=== PATIENT | female | born 1945 | race Caucasian/White ===

== ENCOUNTER 2016-12-13 10:39 | Inpatient (IN) | payer MEDICARE, OTHER ==
[~2016-12-13] VITALS: Ht 157.5 cm; Wt 57.7 kg
[~2016-12-13 10:39] MED LIST: CYCL1TAB29 PO; DULO1CAP PO; HYDR-3583 PO; LOSA50TA2 PO; RANI300T PO; [UNRECOGNIZED DRUG - CODE] PO
[2016-12-15] MEDS ORDERED: TOPA100T11 PO (09:19)
[2016-12-15] MEDS ORDERED: PROT40TA PO (09:19)
[2016-12-15] MEDS ORDERED: ALPR.25 PO (09:20)
[2016-12-15] MEDS ORDERED: COLA100C3 PO (09:20)
[2016-12-15] MEDS ORDERED: MILKSUS PO (09:20)
[2016-12-15] MEDS ORDERED: ZOFR4TAB PO (09:28)
[2016-12-28] MEDS ORDERED: ALVIMOPAN 12 MG CAPSULE ONE (10:47)
[2016-12-28] MEDS ORDERED: metroNIDAZOLE 500 MG INJ 100 ML IV ONE (10:47)
[2016-12-28] MEDS ORDERED: ceFAZolin 2 GM PREMIX 50 ML ONE (10:47)
[2016-12-28] MEDS ORDERED: SODIUM CHLORID 0.9% 500 ML IV SCH (11:00)
[2016-12-28] MEDS ORDERED: INSULIN HUMAN REGULAR 1,000 UNITS/10 ML VIAL SQ PRN (11:00)
[2016-12-28] MEDS ORDERED: ceFAZolin 2 GM PREMIX 50 ML IV SCH (11:00)
[2016-12-28] MEDS ORDERED: ALVIMOPAN 12 MG CAPSULE - On Call PO SCH (11:00)
[2016-12-28] MEDS ORDERED: ACETAMINOPHEN 1000 MG/100 ML VIAL IV SCH (11:00)
[2016-12-28] MEDS ORDERED: LACTATED RINGER'S 1000 ML IV SCH (11:00)
[2016-12-28] MEDS ORDERED: METOPROLOL TARTRATE 25 MG TAB PO PRN (11:00)
[2016-12-28 11:05] VITALS: BP 163/89; PULSE 91; RESP 18; TEMP 98.1; O2SAT 99
[2016-12-28] MEDS ORDERED: FAMOTIDINE 20 MG/2 ML VIAL ONE (11:45)
[2016-12-28] MEDS ORDERED: DEXAMETHASONE SOD PHOS 4 MG/ML VIAL ONE (11:45)
[2016-12-28] MEDS ORDERED: MIDAZOLAM HCL 2 MG/2 ML VIAL ONE (11:45)
[2016-12-28] MEDS ORDERED: ePHEDrine/NS 25 MG/5 ML SYR IV ONE (12:00)
[2016-12-28] MEDS ORDERED: ONDANSETRON HCL 4 MG/2 ML VIAL IV PUSH ONE (12:00)
[2016-12-28] MEDS ORDERED: NEOSTIGMINE 3 MG/3 ML SYR IV ONE (12:00)
[2016-12-28] MEDS ORDERED: LACTATED RINGER'S 1000 ML INJ 2,000 ML IV ONE (12:00)
[2016-12-28] MEDS ORDERED: PHENYLEPH/NS 1000 MCG/10 ML SYR IV ONE (12:00)
[2016-12-28] MEDS ORDERED: PROPOFOL 200 MG/20 ML AMP IV ONE (12:00)
[2016-12-28] MEDS ORDERED: GLUCAGON 1 MG/ML VIAL IV ONE (12:00)
[2016-12-28] MEDS ORDERED: BUPIVACAINE/EPINEPHRINE 0.25% PF 30 ML VIAL INFIL ONE (13:03)
[2016-12-28] MEDS ORDERED: Post-op Orders (for Pharmacy) MISC XX ONE (18:15)
[2016-12-28] MEDS ORDERED: ZOLPIDEM TARTRATE 5 MG TAB PO PRN (18:15)
[2016-12-28] MEDS ORDERED: NALOXONE HCL 0.4 MG/ML AMP IV PRN ×2 (18:15)
[2016-12-28] MEDS ORDERED: SODIUM CHLORIDE 0.9% FLUSH 5 ML FLUSH IVF PRN (18:15)
--- NOTE | 2016-12-28 18:21 | HHI.PR ---
Immediate Post Op Note Procedure Date: Dec 28, 2016 Pre Op Diagnosis: (1) Diverticulitis of large intestine with perforation and abscess without bleeding Post Op Diagnosis: (1) Diverticulitis of large intestine with perforation and abscess without bleeding Surgeon: Jass Wilks [place] Paver Operator(s): Jose Laughlin [facility] Procedure: Robot assisted sigmoid colectomy Findings: contained perforation with purulent fluid Complications: none Specimen(s) removed: sigmoid colon Estimated blood loss: 50cc Anesthesia: General Drains: None Patient to: PACU Patient Condition: Good Jass Wilks MD Dec 28, 2016 18:21
[2016-12-28] MEDS ORDERED: DO NOT ADM ANY ANTICOAGULANT DRUGS XX PRN (18:35)
[2016-12-28] MEDS ORDERED: fentaNYL CITRATE 250 MCG/5 ML AMP ONE ×2 (18:44)
[2016-12-28] MEDS ORDERED: MORPHINE SULFATE 4 MG/ML INJ ONE (18:44)
[2016-12-28] MEDS: SODIUM CHLOR 0.9% 1000 ML INJ 1,000 ML IV SCH (19:00)
[2016-12-28] MEDS ORDERED: *MEPERIDINE 25 MG INJ VIAL PERIprocedural Use ONLY ONE (19:13)
[2016-12-28] MEDS: metroNIDAZOLE 500 MG INJ 100 ML IV SCH (19:30)
[2016-12-28] MEDS: MORPHINE SULFATE 30 MG/30 ML PCA IV SCH (19:36)
[2016-12-28] MEDS: PANTOPRAZOLE SODIUM 40 MG VIAL IV SCH (19:46)
[2016-12-28] MEDS: KETOROLAC TROMETHAMINE 30 MG/ML (IVP) VIAL IVP SCH (19:46)
[2016-12-28 20:00] VITALS: BP 121/57; PULSE 83; RESP 18; TEMP 96.9; O2SAT 98
[2016-12-28] MEDS: SODIUM CHLORIDE 0.9% FLUSH 5 ML FLUSH IVF SCH (21:00)
[2016-12-28] MEDS: PCA - TOTAL MG MORPHINE DELIVERED PER SHIFT SCH (22:00)
[2016-12-29] VITALS (10 sets, daily range): BP systolic 101–119; BP diastolic 50–60; PULSE 72–86; RESP 16–20; TEMP 96.8–98.7; O2SAT 92–99
[2016-12-29] MEDS: diphenhydrAMINE HCL 50 MG/ML VIAL IV PRN ×3 (00:06→16:47)
[2016-12-29] MEDS: KETOROLAC TROMETHAMINE 30 MG/ML (IVP) VIAL IVP SCH ×4 (01:52→20:36)
[2016-12-29] MEDS: metroNIDAZOLE 500 MG INJ 100 ML IV SCH ×2 (01:52→13:25)
[2016-12-29] MEDS: SODIUM CHLOR 0.9% 1000 ML INJ 1,000 ML IV SCH ×2 (04:15→14:15)
[2016-12-29] MEDS: PCA - TOTAL MG MORPHINE DELIVERED PER SHIFT SCH ×3 (06:00→20:37)
[2016-12-29] MEDS: ALVIMOPAN 12 MG CAPSULE - Post-op dosing PO SCH ×2 (08:47→20:36)
[2016-12-29] MEDS: SODIUM CHLORIDE 0.9% FLUSH 5 ML FLUSH IVF SCH ×2 (08:48→20:36)
[2016-12-29] MEDS ORDERED: TOPAMAX 100 MG PO SCH (09:00)
--- NOTE | 2016-12-29 10:01 | HHI.PR ---
Subjective Subjective Notes Pain well controlled. Using TERRAZZO WORKER APPRENTICE. Shlomo clears. Objective Vitals/I&O Vital Signs Date Time Temp Pulse Resp B/P Pulse Ox O2 Delivery O2 Flow Rate FiO2 12/29/16 08:00 98.1 73 17 101/50 99 12/29/16 01:50 Nasal Cannula 12/28/16 19:50 2 Narrative Exam NAD, AAO Nonlabored breathing Mild crepitus upper chest Abd nondistended, inc c/d/i Reyna with cedric urine A/P Assessment and Plan 71 yo F POD 1 s/p robot assisted sigmoid colectomy. Pain controlled with TERRAZZO WORKER APPRENTICE/toradol. Shlomo liquids without nausea. Add percocet PRN. Fulls. OOB to chair and ambulate. DVT proph: SCDs. Collins. Efe,Jass JOHNSON Dec 29, 2016 10:01
[2016-12-29] MEDS: ENOXAPARIN SODIUM 40 MG/0.4 ML SYRINGE SQ SCH (16:37)
[2016-12-29] MEDS: MORPHINE SULFATE 30 MG/30 ML PCA IV SCH (17:49)
[2016-12-29] MEDS: PANTOPRAZOLE SODIUM 40 MG VIAL IV SCH (20:36)
[2016-12-29] MEDS: TOPAMAX 100 MG PO SCH (20:36)
[2016-12-30] VITALS (8 sets, daily range): BP systolic 124–144; BP diastolic 58–72; PULSE 61–73; RESP 17–19; TEMP 96.6–98.9; O2SAT 95–99
[2016-12-30] MEDS: SODIUM CHLOR 0.9% 1000 ML INJ 1,000 ML IV SCH ×3 (01:34→22:03)
[2016-12-30] MEDS: KETOROLAC TROMETHAMINE 30 MG/ML (IVP) VIAL IVP SCH ×4 (02:59→22:07)
[2016-12-30] MEDS: PCA - TOTAL MG MORPHINE DELIVERED PER SHIFT SCH ×3 (06:00→22:00)
[2016-12-30] MEDS: ALVIMOPAN 12 MG CAPSULE - Post-op dosing PO SCH ×2 (08:35→22:08)
[2016-12-30] MEDS: TOPAMAX 100 MG PO SCH ×2 (08:36→21:00)
[2016-12-30] MEDS: SODIUM CHLORIDE 0.9% FLUSH 5 ML FLUSH IVF SCH ×2 (08:36→22:06)
--- NOTE | 2016-12-30 11:53 | HHI.PR ---
Subjective Subjective Notes She feels well. Shlomo fulls. Has had some belching, no flatus. Ambulating in the halls. Objective Vitals/I&O Vital Signs Date Time Temp Pulse Resp B/P Pulse Ox O2 Delivery O2 Flow Rate FiO2 12/30/16 08:00 97.8 64 17 132/59 96 12/29/16 19:56 21 12/29/16 01:50 Nasal Cannula 12/28/16 19:50 2 Narrative Exam NAD, AAO Nonlabored breathing Abd nondistended, inc c/d/i Morel with cedric urine A/P Assessment and Plan 71 yo F POD 2 s/p robot assisted sigmoid colectomy. Doing well post op. Start percocet PO. D/c morel. Fulls. OOB to chair and ambulate. DVT proph: SCDs. Collins. Jass Wilks MD Dec 30, 2016 11:53
[2016-12-30] MEDS: ENOXAPARIN SODIUM 40 MG/0.4 ML SYRINGE SQ SCH (16:34)
[2016-12-30] MEDS: PANTOPRAZOLE SODIUM 40 MG VIAL IV SCH (22:07)
[2016-12-30] MEDS: DULoxetine HCl DR 20 MG CAP PO SCH (22:18)
[2016-12-31] VITALS: BP 144/67; PULSE 60; RESP 19; TEMP 98; O2SAT 97
[2016-12-31] MEDS: KETOROLAC TROMETHAMINE 30 MG/ML (IVP) VIAL IVP SCH ×4 (02:08→21:24)
[2016-12-31 04:00] VITALS: BP 139/65; PULSE 65; RESP 20; TEMP 97.4; O2SAT 95
[2016-12-31] MEDS: PCA - TOTAL MG MORPHINE DELIVERED PER SHIFT SCH (05:27)
[2016-12-31 08:00] VITALS: BP_SYST 170; BP_SYST 172; BP_DIAS 80; BP_DIAS 81; PULSE 52; RESP 18; TEMP 97.5; O2SAT 97
[2016-12-31] MEDS: ALVIMOPAN 12 MG CAPSULE - Post-op dosing PO SCH ×2 (08:51→21:24)
[2016-12-31] MEDS: HYDROCHLOROTHIAZIDE 12.5 MG CAP PO SCH (08:51)
[2016-12-31] MEDS: LOSARTAN 50 MG TAB PO SCH (08:51)
[2016-12-31] MEDS: SODIUM CHLORIDE 0.9% FLUSH 5 ML FLUSH IVF SCH ×2 (08:52→21:00)
[2016-12-31] MEDS ORDERED: NON-FORMULARY DRUG (Losartan-Hydrochlorothiazide 1 TAB) PO SCH (09:00)
[2016-12-31] MEDS: oxyCODONE/ACETAMINOPHEN 5 MG/325 MG TAB PO PRN ×3 (09:02→17:55)
[2016-12-31] MEDS: TOPAMAX 100 MG PO SCH ×2 (09:02→21:25)
[2016-12-31] MEDS: ONDANSETRON HCL 4 MG/2 ML VIAL IV PRN (09:03)
[2016-12-31 12:00] VITALS: BP 139/65; PULSE 58; RESP 18; TEMP 96.9; O2SAT 96
[2016-12-31] MEDS ORDERED: OXYC1TAB63 PO (12:49)
--- NOTE | 2016-12-31 12:52 | HHI.PR ---
Subjective Subjective Notes Tolerating fulls without problem. Ambulating. Pain well controlled, using SEAT COVER MAKER minimally. Objective Vitals/I&O Vital Signs Date Time Temp Pulse Resp B/P Pulse Ox O2 Delivery O2 Flow Rate FiO2 12/31/16 12:00 96.9 58 18 139/65 96 12/30/16 09:45 21 12/29/16 01:50 Nasal Cannula 12/28/16 19:50 2 Narrative Exam NAD, AAO Nonlabored breathing Abd min distention, inc c/d/i A/P Assessment and Plan 71 yo F POD 3 s/p robot assisted sigmoid colectomy. Doing well post op. D/c SEAT COVER MAKER and IVF. Cont Percocet PO. Reg diet. OOB to chair and ambulate. DVT proph: SCDs. Lovenox. Possible d/c tomorrow if passing flatus/+BM. Jass Wilks MD Dec 31, 2016 12:52
[2016-12-31 16:00] VITALS: BP 144/64; PULSE 58; RESP 17; TEMP 98.3; O2SAT 96
[2016-12-31] MEDS: ENOXAPARIN SODIUM 40 MG/0.4 ML SYRINGE SQ SCH (17:55)
--- NOTE | 2016-12-31 19:15 | MP ---
cc: LAVERN BETANCOURT MD DATE OF SURGERY 12/29/16 PREOPERATIVE DIAGNOSIS Diverticulitis with abscess. POSTOPERATIVE DIAGNOSIS Diverticulitis with abscess. PROCEDURE Robot assisted sigmoid colectomy. CO-SURGEONS MD Eric Melvin MD SASH MAKER Qian Thao CFA, CFA ANESTHESIA General endotracheal anesthesia ESTIMATED BLOOD LOSS 50 mL COMPLICATIONS None apparent. INDICATIONS This is a 71-year-old female who had a history of diverticulitis with perforation. She had undergone laparoscopic washout and lavage with drain placement and recovered well. She was planned for elective resection of the sigmoid colon. INTRAOPERATIVE FINDINGS The patient has had severe diverticulosis of the sigmoid colon. There was adherence of a portion of the sigmoid colon to the dome of the bladder and in this area there was a contained abscess with purulent fluid that drained. This was not spilled through the peritoneal cavity and was easily suctioned free from the abdomen. PROCEDURE IN DETAIL The patient was taken to the operating room, placed in a supine position. General endotracheal anesthesia was induced. The abdomen was prepped and draped in usual sterile fashion. The patient was placed in stirrups for access to the perineum. Initially, a 5 mm incision was made in the left upper abdomen. The abdomen was entered using the OptiView trocar and direct laparoscopic visualization. The abdomen was then insufflated to 15 mmHg with CO2 gas. Next, under direct laparoscopic visualization a 12 mm port was placed a couple of centimeters to the right of the umbilicus. About 8 cm lateral and then inferiorly another 12 mm port was placed. An ambulance assistant port 5 mm was placed in the right upper quadrant. In the left lateral abdomen, an 8 mm robotic port was placed. Finally, the initial 5 mm left upper quadrant port was exchanged for an 8 mm robotic port. The patient was placed in steep Trendelenburg position and turned slightly to the right. Next, the robot was docked with the camera at the umbilical port arm one in the right lower abdomen, arm two in the left upper abdomen and arm three in the left lateral abdomen. Attention was turned to taking down a few adhesions. There was adherence of the sigmoid colon to apparently the dome of the bladder. This was taken down carefully with electrocautery and a purulent pocket was entered. This was carefully suctioned with no spillage into the abdominal cavity. A few other adhesions were carefully taken down. The patient was thin and anatomy was quite clear. Actually, the left ureter was visible prior to any dissection. Then the peritoneum was scored and the ureter visualized even more closely. The sigmoidal vessels were carefully delineated using electrocautery and were then transected with the vessel sealer. Attention was then turned to lateral dissection. The white line of Toldt was dissected free and the peritoneum along the white line of Toldt in the sigmoid and descending colon taken down with the vessel sealer. The mesentery was divided along the spleen using the vessel sealer. Attention was then turned to the pelvis. Careful dissection at the rectosigmoid and upper rectum was performed. The peritoneum was scored. Attention was paid to the left ureter and the right ureter was also identified. These were avoided. The upper rectum was mobilized circumferentially. The mesorectum in the upper portion was taken down using the vessel sealer. At this point, the upper rectum was divided using the intuitive green load stapler in two fires. There was no bleeding from the staple line. Next, the descending colon superior to any obvious diverticular disease was divided using the green load stapler as well. The specimen was moved to the right upper abdomen and the descending colon brought down into the pelvis. Unfortunately, there was still not enough length. Therefore, the splenic flexure was then taken down carefully. This was started at the gastrocolic ligament and the avascular plane. The lateral attachments at the superior descending colon and the splenic flexure were taken down with the vessel sealer. Unfortunately, there was still not enough length and further blood supply in the mesentery of the descending colon was then divided to allow sufficient length. There remained a healthy-appearing arcade along the length of the descending colon and the descending colon appeared well perfused. This did allow for sufficient length. Next, the abdomen was allowed to desufflate and the robot was undocked. The patient had a previous Pfannenstiel incision. An approximately 5 cm incision was made through this scar and the abdomen was entered. The specimen was removed through this incision and sent to pathology. The distal colon was brought out through the incision. There had been one area of serosal injury a few centimeters from the staple line and this was repaired with multiple imbricating 3-0 Vicryl sutures. The pursestring device was fired on the end of the descending colon and the 29 size anvil was placed. The pursestring device was sutured down. The anvil was then dropped back into the abdomen. Next, the rigid sigmoidoscope was placed through the anus. It easily went to the stapled end of the rectum. The 29 EEA was then placed through the anus and just anterior to the staple line, the pin was fired through the rectum. The anvil was attached. There appeared to be a good seal. The colon was not twisted and there was no tension. The EEA was then fired. There were two full donuts. A leak test was performed with normal saline and insufflation of the rectum with the rigid sigmoidoscope and there was no leak. There was good hemostasis in the pelvis. The sigmoidoscope was removed. The Pfannenstiel incision was closed with a running #1 PDS suture. The abdomen was re-insufflated laparoscopically. Again, the colon had no twisting and no tension. The abdomen was allowed to desufflate. The two 12-mm port sites were closed with 0 Vicryl suture. Skin was closed with 4-0 Monocryl as well as Dermabond. The patient tolerated the procedure well, was extubated and taken to PACU in stable condition. Prior to removing the specimen, a wound protector device was placed. MD ANIYAH Vang/ /10:05 AM /6:52 PM
[2016-12-31 20:00] VITALS: BP 146/64; PULSE 59; RESP 20; TEMP 97.3; O2SAT 96
[2016-12-31] MEDS: DOCUSATE SODIUM 100 MG CAP PO SCH (21:24)
[2016-12-31] MEDS: DULoxetine HCl DR 20 MG CAP PO SCH (21:26)
[2017-01-01] VITALS: BP 170/72; PULSE 58; RESP 20; TEMP 97.6; O2SAT 98
[2017-01-01] MEDS: oxyCODONE/ACETAMINOPHEN 5 MG/325 MG TAB PO PRN ×4 (00:07→18:24)
[2017-01-01] MEDS: KETOROLAC TROMETHAMINE 30 MG/ML (IVP) VIAL IVP SCH ×4 (02:33→20:37)
[2017-01-01 08:00] VITALS: BP 164/68; PULSE 52; RESP 14; TEMP 97.6; O2SAT 97
[2017-01-01] MEDS: TOPAMAX 100 MG PO SCH ×2 (08:06→20:38)
[2017-01-01] MEDS: HYDROCHLOROTHIAZIDE 12.5 MG CAP PO SCH (08:07)
[2017-01-01] MEDS: DOCUSATE SODIUM 100 MG CAP PO SCH ×2 (08:07→20:38)
[2017-01-01] MEDS: SODIUM CHLORIDE 0.9% FLUSH 5 ML FLUSH IVF SCH ×2 (08:07→20:38)
[2017-01-01] MEDS: LOSARTAN 50 MG TAB PO SCH (08:07)
[2017-01-01] MEDS: PANTOPRAZOLE SOD 40 MG DELAYED RELEASE TAB PO SCH (08:08)
[2017-01-01] MEDS: ALVIMOPAN 12 MG CAPSULE - Post-op dosing PO SCH ×2 (08:08→20:37)
[2017-01-01 12:00] VITALS: BP 152/84; PULSE 65; RESP 12; TEMP 98.1; O2SAT 98
--- NOTE | 2017-01-01 13:02 | HHI.PR ---
Subjective Subjective Notes She feels very tired and weak today. She is tolerating a regular diet in very small amounts, but no nausea or vomiting. Her pain is well controlled. She had a liquid bowel movement earlier today. Due to her extreme fatigue she is asking to stay another day. Objective Vitals/I&O Vital Signs Date Time Temp Pulse Resp B/P Pulse Ox O2 Delivery O2 Flow Rate FiO2 01/01/17 08:00 97.6 52 14 164/68 97 12/30/16 09:45 21 12/29/16 01:50 Nasal Cannula 12/28/16 19:50 2 Cardiovascular: Regular Lungs: Clear Abdomen: Non-distended, Non-tender, BS normal Extremities: No edema A/P Assessment and Plan Postoperative day #3 status post robotic-assisted sigmoid colectomy. Doing extremely well. She should be able to go home tomorrow. Fracisco Ludwig MD Jan 01, 2017 13:02
[2017-01-01 16:00] VITALS: BP 141/78; PULSE 70; RESP 14; TEMP 98.6; O2SAT 97
[2017-01-01] MEDS: ENOXAPARIN SODIUM 40 MG/0.4 ML SYRINGE SQ SCH (17:45)
[2017-01-01 20:00] VITALS: BP 161/72; PULSE 72; RESP 20; TEMP 97.3; O2SAT 96
[2017-01-01] MEDS: DULoxetine HCl DR 20 MG CAP PO SCH (20:37)
[2017-01-02] VITALS: BP 171/81; PULSE 63; RESP 18; TEMP 97.6; O2SAT 96
[2017-01-02] MEDS: oxyCODONE/ACETAMINOPHEN 5 MG/325 MG TAB PO PRN (00:43)
[2017-01-02] MEDS: KETOROLAC TROMETHAMINE 30 MG/ML (IVP) VIAL IVP SCH ×2 (01:24→08:00)
[2017-01-02] MEDS ORDERED: HYDROCHLOROTHIAZIDE 12.5 MG CAP PO SCH (01:30)
[2017-01-02] MEDS ORDERED: LOSARTAN 50 MG TAB PO SCH (01:30)
[2017-01-02 04:05] VITALS: BP 174/82; PULSE 65; RESP 18; TEMP 97.7; O2SAT 96
[2017-01-02] MEDS: ONDANSETRON HCL 4 MG/2 ML VIAL IV PRN ×2 (06:12→12:37)
[2017-01-02 08:00] VITALS: BP 180/82; PULSE 56; RESP 18; TEMP 97.7; O2SAT 97
[2017-01-02] MEDS: HYDROCHLOROTHIAZIDE 12.5 MG CAP PO SCH (08:56)
[2017-01-02] MEDS: SODIUM CHLORIDE 0.9% FLUSH 5 ML FLUSH IVF SCH (08:56)
[2017-01-02] MEDS: TOPAMAX 100 MG PO SCH (08:56)
[2017-01-02] MEDS: ALVIMOPAN 12 MG CAPSULE - Post-op dosing PO SCH (08:56)
[2017-01-02] MEDS: LOSARTAN 50 MG TAB PO SCH (08:56)
[2017-01-02] MEDS: PANTOPRAZOLE SOD 40 MG DELAYED RELEASE TAB PO SCH (08:56)
[2017-01-02] MEDS: DOCUSATE SODIUM 100 MG CAP PO SCH (08:56)
[2017-01-02] MEDS ORDERED: ZOFR4TAB3 SL (08:58)
[2017-01-02 12:00] VITALS: BP 190/83; PULSE 66; RESP 19; TEMP 96.5; O2SAT 97
--- NOTE | 2017-03-07 17:21 | MD ---
cc: LAVERN BETANCOURT MD ADMISSION DATE: 12/28/2016 DISCHARGE DATE: 01/02/2017 PROCEDURES: The patient underwent laparoscopic per the patient underwent robot assisted sigmoid colectomy on 12/29/2016. BRIEF HISTORY This is a 71-year-old female who had a history of a perforated sigmoid diverticulitis and had undergone laparoscopic lavage and drainage. After recuperating and improving. She was scheduled for elective robotic assisted sigmoid resection. HOSPITAL COURSE The patient did well during the operation. Postoperatively her diet was advanced until she was tolerating regular diet with flatus and bowel movement. Her pain was initially controlled with DIVISION TOLL WIRE CHIEF and then later with only narcotic oral medication. She was ambulating safely. CONDITION ON DISCHARGE Stable. Discharged to home. DISCHARGE MEDICATIONS 1. Zofran ODT 2. She already had a prescription for Lortab at home. 3. Follow with me in 10 days, diet as tolerated. ACTIVITY No heavy lifting. No driving on narcotics, okay to shower. MD ANIYAH Vang/wilder /4:06 PM /5:18 PM
== END 2017-01-02 13:02 | disposition home or self-care (01) | DRG 330 ==
LOC: HSDI 12-28 10:10 → N07A 12-28 20:13
PROVIDERS: ADMIT Surgery; ATTEND Surgery
PROC: 8E0W4CZ Robotic Assisted Procedure of Trunk Region, Percutaneous Endoscopic Approach (ICD-10-PCS; 2016-12-28)
PROC: 0DJD8ZZ Inspection of Lower Intestinal Tract, Via Natural or Artificial Opening Endoscopic (ICD-10-PCS; 2016-12-28)
PROC: 0DTN4ZZ Resection of Sigmoid Colon, Percutaneous Endoscopic Approach (ICD-10-PCS; principal; 2016-12-28 12:03)
DX: K57.20 Diverticulitis of large intestine with perforation and abscess without bleeding (principal); I10 Essential (primary) hypertension; K21.9 Gastro-esophageal reflux disease without esophagitis; F41.9 Anxiety disorder, unspecified; Z88.5 Allergy status to narcotic agent
CPT/HCPCS: 88307; 94150; C9113; J0131; J0690; J1100; J1200; J1610; J1650; J1885; J2175; J2250; J2270; J2370; J2405; J2710; J3010; J7030; J7120

== ENCOUNTER → 2016-12-15 | Outpatient (CLI) | payer MEDICARE, OTHER ==
[~2016-12-15] MED LIST changes: +ALPR.25 PO; +COLA100C3 PO; +LEVA750T PO; +METR-1 PO; +MILKSUS PO; +OXYC1TAB63 PO; +PROT40TA PO; +TOPA100T11 PO; +ZOFR4TAB PO; +ZOFR4TAB3 SL
[2016-12-15 09:29] LABS: AUTOMATED NEUTROPHIL # 3.2 TH/MM3 (1.8-7.7); BASOPHIL # 0.1 TH/MM3 (0-0.2); BASOPHIL % 1.1 % (0.0-2.0); EOSINOPHIL % 0.9 % (0.0-4.0); HEMATOCRIT 39.9 % (35.0-46.0); HEMO FLAGS DIFF FINAL; LYMPH % 23.7 % (9.0-44.0); LYMPHOCYTE # 1.1 TH/MM3 (1.0-4.8); MEAN CELL VOLUME 95.3 FL (80.0-100.0); MEAN CORPUSCULAR HEMOGLOBIN 31.9 PG (27.0-34.0); MEAN CORPUSCULAR HGB CONC 33.5 % (32.0-36.0); MONO % 9.5 % (0.0-8.0); NEUT % 64.8 % (16.0-70.0); PLATELET COUNT 216 TH/MM3 (150-450); RED BLOOD COUNT 4.18 MIL/MM3 (4.00-5.30); WHITE BLOOD COUNT 4.9 TH/MM3 (4.0-11.0)
== END ==
LOC: CPRE 08:52
PROVIDERS: ATTEND Surgery
DX: Z01.812 Encounter for preprocedural laboratory examination (principal)
CPT/HCPCS: 36415; 85025

== ENCOUNTER 2017-07-11 05:37 | Observation (INO) | payer MEDICARE, OTHER ==
[~2017-07-11] VITALS: Ht 157.5 cm; Wt 61.8 kg
[~2017-07-11 05:37] MED LIST changes: -COLA100C3 PO; +CYMB30CA PO; +DOCU100C PO; -DULO1CAP PO; -LEVA750T PO; +LOSA100T3 PO; -LOSA50TA2 PO; -METR-1 PO; -MILKSUS PO; -OXYC1TAB63 PO
[2017-07-11] MEDS ORDERED: INSULIN HUMAN REGULAR 1,000 UNITS/10 ML VIAL SQ PRN (06:00)
[2017-07-11] MEDS ORDERED: ACETAMINOPHEN 1000 MG/100 ML VIAL IV SCH (06:00)
[2017-07-11] MEDS ORDERED: CHLORHEXIDINE GLUCONATE 2 % 1 PACK (2 CLOTHS) TOPICAL PRN (06:00)
[2017-07-11] MEDS ORDERED: SODIUM CHLORID 0.9% 500 ML IV PRN (06:00)
[2017-07-11] MEDS ORDERED: METOPROLOL TARTRATE 25 MG TAB PO PRN (06:00)
[2017-07-11] MEDS ORDERED: ceFAZolin 2 GM PREMIX 50 ML IV SCH (06:00)
[2017-07-11] MEDS ORDERED: LACTATED RINGER'S 1000 ML IV PRN (06:00)
[2017-07-11] MEDS ORDERED: POVIDONE IODINE 5% (ANTISEPSIS KIT) 4 APPLICATIONS EACH NARE PRN (06:00)
[2017-07-11 06:37] VITALS: BP 146/77; PULSE 66; RESP 18; TEMP 97.8; O2SAT 98
[2017-07-11] MEDS ORDERED: fentaNYL CITRATE 250 MCG/5 ML AMP ONE (07:55)
[2017-07-11] MEDS ORDERED: DEXAMETHASONE SOD PHOS 4 MG/ML VIAL ONE (07:55)
[2017-07-11] MEDS ORDERED: MIDAZOLAM HCL 2 MG/2 ML VIAL ONE ×2 (07:55→08:10)
[2017-07-11] MEDS ORDERED: ONDANSETRON HCL 4 MG/2 ML VIAL ONE (07:56)
[2017-07-11] MEDS ORDERED: FAMOTIDINE 20 MG/2 ML VIAL ONE (07:56)
[2017-07-11] MEDS ORDERED: BUPIVACAINE/EPINEPHRINE 0.25% 50 ML VIAL ONE (08:21)
[2017-07-11] MEDS ORDERED: ROPIVACAINE 0.5% PF INJ 30 ML VIAL NERV BLOCK ONE (09:41)
[2017-07-11] MEDS ORDERED: Post-op Orders (for Pharmacy) MISC XX ONE (10:45)
[2017-07-11] MEDS ORDERED: SODIUM CHLORIDE 0.9% FLUSH 10 ML FLUSH IV FLUSH PRN (10:45)
[2017-07-11] MEDS ORDERED: oxyCODONE/ACETAMINOPHEN 5 MG/325 MG TAB PO PRN (10:45)
[2017-07-11] MEDS ORDERED: NALOXONE HCL 0.4 MG/ML AMP IV PRN (10:45)
[2017-07-11] MEDS ORDERED: diphenhydrAMINE HCL 25 MG CAP PO PRN (10:45)
--- NOTE | 2017-07-11 10:47 | PD.OP ---
cc: Jass Wilks MD Operative Report Date of Surgery: Jul 11, 2017 Preoperative Diagnosis: (1) Incisional hernia Postoperative Diagnosis: (1) Incisional hernia Procedure: Laparoscopic repair of incisional suprapubic hernia with mesh Anesthesia: YOVANY Surgeon: Jass Wilks Padded Box Sewer(s): Zoila Morales Operation and Findings: EBL: 5 cc Indications: The patient underwent robot assisted sigmoid colectomy 6 months ago. Unfortunately, she developed a suprapubic incisional hernia at the site of the minilaparotomy. She had significant discomfort and after discussion with the patient we plan laparoscopic repair. Operative findings: The patient had a approximate 4 x 5 cm suprapubic incisional hernia. Procedure in detail: The patient was taken to the operating room and placed in supine position. General endotracheal anesthesia was induced and the abdomen was prepped and draped in usual sterile fashion. Ioban was placed. Surgical timeout was performed to verify correct patient procedure and site. Local anesthetic was injected in skin and subcutaneous tissue in the left upper abdomen and a 5 mm incision made. 5 mm trocar was used to enter the abdomen probably with a lap scope in place. Abdomen was insufflated to 15 mmHg with CO2 gas which the patient tolerated well. Another 5 mm port was placed in the left lateral abdomen and a 12 mm GelPort and in the right upper abdomen and a 5 mm port in the right far upper abdomen. A suprapubic hernia defect was identified. Using the Harmonic scalpel, the hernia sac was reduced. The peritoneum was taken down for a few centimeters lateral to the defect on either side. The pubis was encountered and the dome of the bladder was taken down to develop the extraperitoneal space. The pubis and both Wilfredo's ligaments were identified and the hernia was starting at midline and going about 4 cm to left of midline. There were about 3 cm of rectus fascia superior to the pubis before the hernia defect. An 11 x [address] mesh using the echo deployment system was placed in the abdominal cavity. Small small stab incision placed superior to the hernia sac and a catheter inflated to inflate the structural portion of the mesh. The mesh was secured using the Capsure tacker at the medial portion of both Wilfredo's ligaments and then circumferentially taking care to avoid any vessels. I was not as lateral as the epigastrics or the iliacs. A second layer of tacks was placed more centrally. There was wide coverage of the defect. The peritoneum which had been taken down was tacked back up to cover the majority of the mesh. The patient tolerated the procedure well was extubated and taken to PACU in stable condition. The urine did appear pink and the Reyna catheter and this will be monitored and the catheter left in place. Jass Wilks MD Jul 11, 2017 10:47
[2017-07-11] MEDS: LACTATED RINGER'S 1000 ML INJ 1,000 ML IV SCH ×2 (11:11→21:41)
[2017-07-11] MEDS ORDERED: *morphine SULFATE 8 MG/ML PERIprocedure ONLY ONE ×3 (11:13→12:27)
[2017-07-11] MEDS: KETOROLAC TROMETHAMINE 30 MG/ML (IVP) VIAL IVP SCH ×2 (11:42→16:31)
[2017-07-11] MEDS ORDERED: NEOSTIGMINE 3 MG/3 ML SYR IV ONE (12:00)
[2017-07-11] MEDS ORDERED: PROPOFOL 200 MG/20 ML AMP IV ONE (12:00)
[2017-07-11] MEDS ORDERED: ePHEDrine/NS 25 MG/5 ML SYR IV ONE (12:00)
[2017-07-11] MEDS ORDERED: ONDANSETRON HCL 4 MG/2 ML VIAL IV PUSH ONE (12:00)
[2017-07-11] MEDS: PANTOPRAZOLE SOD 40 MG DELAYED RELEASE TAB PO SCH (13:00)
[2017-07-11] MEDS ORDERED: KETOROLAC TROMETHAMINE 30 MG/ML (IVP) VIAL IVP SCH (13:00)
[2017-07-11] MEDS ORDERED: DO NOT ADM ANY ANTICOAGULANT DRUGS PRN (15:15)
[2017-07-11 16:00] VITALS: BP 127/58; PULSE 63; RESP 17; TEMP 95.5; O2SAT 98
[2017-07-11] MEDS: MORPHINE SULFATE 4 MG/ML INJ IV PRN (16:22)
[2017-07-11 18:13] VITALS: O2SAT 98
[2017-07-11 20:00] VITALS: BP 103/59; PULSE 64; RESP 20; TEMP 95.6; O2SAT 96
[2017-07-11] MEDS: SODIUM CHLORIDE 0.9% FLUSH 10 ML FLUSH IV FLUSH SCH (21:00)
[2017-07-11] MEDS: oxyCODONE/ACETAMINOPHEN 10 MG/325 MG TAB PO PRN (21:40)
[2017-07-11] MEDS: ONDANSETRON HCL 4 MG/2 ML VIAL IV PRN (21:40)
[2017-07-11] MEDS: DOCUSATE SODIUM 100 MG CAP PO SCH (21:41)
[2017-07-12] VITALS (7 sets, daily range): BP systolic 106–151; BP diastolic 56–71; PULSE 56–75; RESP 17–19; TEMP 96–99.3; O2SAT 94–98
[2017-07-12] MEDS: MORPHINE SULFATE 4 MG/ML INJ IV PRN ×3 (04:30→21:28)
[2017-07-12] MEDS: KETOROLAC TROMETHAMINE 30 MG/ML (IVP) VIAL IVP SCH ×4 (06:33→17:34)
[2017-07-12] MEDS: DOCUSATE SODIUM 100 MG CAP PO SCH ×2 (07:58→21:28)
[2017-07-12] MEDS: oxyCODONE/ACETAMINOPHEN 10 MG/325 MG TAB PO PRN ×2 (07:58→16:19)
[2017-07-12] MEDS: LACTATED RINGER'S 1000 ML INJ 1,000 ML IV SCH ×2 (07:59→17:34)
[2017-07-12] MEDS: SODIUM CHLORIDE 0.9% FLUSH 10 ML FLUSH IV FLUSH SCH ×2 (08:00→21:00)
[2017-07-12 08:11] LABS: AUTOMATED NEUTROPHIL # 4.9 TH/MM3 (1.8-7.7); BASOPHIL % 0.5 % (0.0-2.0); EOSINOPHIL % 0.5 % (0.0-4.0); HEMO FLAGS DIFF FINAL; LYMPH % 21.1 % (9.0-44.0); LYMPHOCYTE # 1.5 TH/MM3 (1.0-4.8); MEAN CELL VOLUME 96.1 FL (80.0-100.0); MEAN CORPUSCULAR HEMOGLOBIN 32.8 PG (27.0-34.0); MEAN CORPUSCULAR HGB CONC 34.1 % (32.0-36.0); MONO % 9.3 % (0.0-8.0); NEUT % 68.6 % (16.0-70.0); PLATELET COUNT 175 TH/MM3 (150-450); RED BLOOD COUNT 3.54 MIL/MM3 (4.00-5.30); RED CELL DISTRIBUTION WIDTH 13.6 % (11.6-17.2); WHITE BLOOD COUNT 7.2 TH/MM3 (4.0-11.0)
[2017-07-12] MEDS: ENOXAPARIN SODIUM 40 MG/0.4 ML SYRINGE SQ SCH (08:32)
[2017-07-12 08:36] LABS: BICARBONATE 28.1 MEQ/L (21.0-32.0)
--- NOTE | 2017-07-12 08:38 | HHI.PR ---
Subjective Subjective Notes C/o pain when she sits up. C/o edema in the labia. Objective Vitals/I&O Vital Signs Date Time Temp Pulse Resp B/P Pulse Ox O2 Delivery O2 Flow Rate FiO2 07/12/17 04:00 96.6 56 18 131/61 94 07/11/17 18:13 21 Labs Laboratory Tests Test 07/12/17 05:40 White Blood Count 7.2 Red Blood Count 3.54 Hemoglobin 11.6 Hematocrit 34.0 Mean Corpuscular Volume 96.1 Mean Corpuscular Hemoglobin 32.8 Mean Corpuscular Hemoglobin 34.1 Concent Red Cell Distribution Width 13.6 Platelet Count 175 Mean Platelet Volume 9.8 Neutrophils (%) (Auto) 68.6 Lymphocytes (%) (Auto) 21.1 Monocytes (%) (Auto) 9.3 Eosinophils (%) (Auto) 0.5 Basophils (%) (Auto) 0.5 Neutrophils # (Auto) 4.9 Lymphocytes # (Auto) 1.5 Monocytes # (Auto) 0.7 Eosinophils # (Auto) 0.0 Basophils # (Auto) 0.0 CBC Comment DIFF FINAL Differential Comment Narrative Exam NAD Abd: soft, mild edema at pubis and labia, inc c/d/i A/P Assessment and Plan 72 yo F POD 1 s/p lap suprapubic hernia repair with mesh. Stable. Regular diet Restart home meds Encourage ambulation Continue morel due to location of hernia repair and bladder being involved in operation. WIll dc in am. Jass Wilks MD Jul 12, 2017 08:38
[2017-07-12] MEDS ORDERED: FROVATRIPTAN PO PRN (08:45)
[2017-07-12 08:50] LABS: POTASSIUM 3.9 MEQ/L (3.5-5.1)
[2017-07-12] MEDS ORDERED: PANTOPRAZOLE SOD 40 MG DELAYED RELEASE TAB PO SCH (09:00)
[2017-07-12] MEDS ORDERED: NON-FORMULARY DRUG (Losartan-Hydrochlorothiazide 1 TAB) PO SCH (09:00)
[2017-07-12] MEDS: PANTOPRAZOLE SOD 40 MG DELAYED RELEASE TAB PO SCH (11:57)
[2017-07-12] MEDS ORDERED: PILL SPLITTER OTHER PRN (15:30)
[2017-07-12] MEDS ORDERED: CYCLOBENZAPRINE HCL 10 MG TAB PO PRN ×2 (18:00)
[2017-07-12] MEDS ORDERED: NON-FORMULARY DRUG (Ranitidine 300 MG) PO SCH (21:00)
[2017-07-12] MEDS: FAMOTIDINE 20 MG TAB PO SCH (21:28)
[2017-07-12] MEDS: DULoxetine HCl DR 30 MG CAP PO SCH (21:28)
[2017-07-13] VITALS (8 sets, daily range): BP systolic 135–169; BP diastolic 67–74; PULSE 70–78; RESP 16–20; TEMP 96.2–98.8; O2SAT 93–97
[2017-07-13] MEDS: oxyCODONE/ACETAMINOPHEN 10 MG/325 MG TAB PO PRN ×3 (01:29→16:52)
[2017-07-13] MEDS: LACTATED RINGER'S 1000 ML INJ 1,000 ML IV SCH (05:00)
[2017-07-13] MEDS: KETOROLAC TROMETHAMINE 30 MG/ML (IVP) VIAL IVP SCH ×4 (06:24→18:12)
[2017-07-13] MEDS: SODIUM CHLORIDE 0.9% FLUSH 10 ML FLUSH IV FLUSH SCH ×2 (09:00→19:57)
[2017-07-13] MEDS: DOCUSATE SODIUM 100 MG CAP PO SCH ×2 (09:00→19:57)
[2017-07-13] MEDS: LOSARTAN 50 MG TAB PO SCH (09:36)
[2017-07-13] MEDS: HYDROCHLOROTHIAZIDE 12.5 MG CAP PO SCH (09:37)
[2017-07-13] MEDS: FAMOTIDINE 20 MG TAB PO SCH ×2 (09:37→19:57)
[2017-07-13] MEDS: ENOXAPARIN SODIUM 40 MG/0.4 ML SYRINGE SQ SCH (09:38)
--- NOTE | 2017-07-13 10:54 | HHI.PR ---
Subjective Subjective Notes Her pain and the swelling in her labia are both improving. She is going to get out of bed and ambulate. Tolerating diet but no BM and requests a laxative. Objective Vitals/I&O Vital Signs Date Time Temp Pulse Resp B/P Pulse Ox O2 Delivery O2 Flow Rate FiO2 07/13/17 08:00 98.8 73 16 150/67 96 07/12/17 20:03 Nasal Cannula 2.00 07/11/17 18:13 21 Narrative Exam NAD Abd: soft, edema at pubis and labia, inc c/d/i Morel clear urine A/P Assessment and Plan 72 yo F POD 2 s/p lap suprapubic hernia repair with mesh. Stable. Regular diet Cont home meds Encourage ambulation D/c morel. Stop IVF. Give laxative. Jass Wilks MD Jul 13, 2017 10:54
[2017-07-13] MEDS ORDERED: MAGNESIUM HYDROXIDE SUSP 30 ML CUP PO ONE (12:00)
[2017-07-13] MEDS: PANTOPRAZOLE SOD 40 MG DELAYED RELEASE TAB PO SCH (12:46)
[2017-07-13] MEDS: MORPHINE SULFATE 4 MG/ML INJ IV PRN ×2 (16:00→20:05)
[2017-07-13] MEDS: ONDANSETRON HCL 4 MG/2 ML VIAL IV PRN (16:02)
[2017-07-13] MEDS: DULoxetine HCl DR 30 MG CAP PO SCH (19:57)
[2017-07-14] VITALS (7 sets, daily range): BP systolic 116–154; BP diastolic 62–72; PULSE 68–93; RESP 14–20; TEMP 96.8–98; O2SAT 92–96
[2017-07-14] MEDS: KETOROLAC TROMETHAMINE 30 MG/ML (IVP) VIAL IVP SCH ×6 (00:49→22:46)
[2017-07-14] MEDS: oxyCODONE/ACETAMINOPHEN 10 MG/325 MG TAB PO PRN ×3 (00:50→18:13)
[2017-07-14] MEDS: MORPHINE SULFATE 4 MG/ML INJ IV PRN ×2 (06:10→22:25)
[2017-07-14] MEDS ORDERED: MAGNESIUM HYDROXIDE SUSP 30 ML CUP PO ONE (08:00)
[2017-07-14] MEDS: DOCUSATE SODIUM 100 MG CAP PO SCH ×2 (08:24→21:00)
[2017-07-14] MEDS: HYDROCHLOROTHIAZIDE 12.5 MG CAP PO SCH (08:24)
[2017-07-14] MEDS: FAMOTIDINE 20 MG TAB PO SCH ×2 (08:25→22:45)
[2017-07-14] MEDS: ONDANSETRON HCL 4 MG/2 ML VIAL IV PRN (08:25)
[2017-07-14] MEDS: SODIUM CHLORIDE 0.9% FLUSH 10 ML FLUSH IV FLUSH SCH ×2 (08:27→22:47)
[2017-07-14] MEDS: LOSARTAN 50 MG TAB PO SCH (09:18)
[2017-07-14] MEDS: ENOXAPARIN SODIUM 40 MG/0.4 ML SYRINGE SQ SCH (10:30)
--- NOTE | 2017-07-14 12:14 | HHI.PR ---
Subjective Subjective Notes She c/o spasms throughout the abdomen which started after urinating this am. She has quite a bit of pain. She did have a BM yesterday but requests laxative again. Objective Vitals/I&O Vital Signs Date Time Temp Pulse Resp B/P Pulse Ox O2 Delivery O2 Flow Rate FiO2 07/14/17 09:37 95 07/14/17 09:17 71 140/68 07/14/17 08:00 96.8 14 07/13/17 22:27 21 07/12/17 20:03 Nasal Cannula 2.00 Narrative Exam NAD Abd: soft, edema at pubis and labia, inc c/d/i A/P Assessment and Plan 72 yo F POD 3 s/p lap suprapubic hernia repair with mesh. Abdominal spasms, ? bladder spasms. Still significant pain. Regular diet Cont home meds Encourage ambulation Will give another laxative. Try oxybutinin for spasms. Jass Wilks MD Jul 14, 2017 12:14
[2017-07-14] MEDS: OXYBUTYNIN CHLORIDE 5 MG TAB PO SCH ×2 (13:22→22:46)
[2017-07-14] MEDS: PANTOPRAZOLE SOD 40 MG DELAYED RELEASE TAB PO SCH (13:22)
[2017-07-14] MEDS ORDERED: LACTATED RINGER'S 1000 ML INJ 1,000 ML IV ONE (17:45)
[2017-07-14] MEDS: MAGNESIUM HYDROXIDE SUSP 30 ML CUP PO SCH (22:45)
[2017-07-14] MEDS: DULoxetine HCl DR 30 MG CAP PO SCH (22:46)
[2017-07-14] MEDS: D5-1/2 NS + KCL 20 MEQ INJ 1,000 ML IV SCH (22:48)
[2017-07-15] VITALS: BP 123/58; PULSE 78; RESP 20; TEMP 98.7; O2SAT 99
[2017-07-15] MEDS: OXYBUTYNIN CHLORIDE 5 MG TAB PO SCH ×3 (06:14→21:35)
[2017-07-15] MEDS: oxyCODONE/ACETAMINOPHEN 10 MG/325 MG TAB PO PRN ×3 (06:14→19:05)
[2017-07-15] MEDS: KETOROLAC TROMETHAMINE 30 MG/ML (IVP) VIAL IVP SCH ×4 (06:15→21:35)
[2017-07-15 07:40] LABS: AUTOMATED NEUTROPHIL # 3.5 TH/MM3 (1.8-7.7); BASOPHIL % 0.4 % (0.0-2.0); EOSINOPHIL # 0.1 TH/MM3 (0-0.4); EOSINOPHIL % 1.9 % (0.0-4.0); HEMATOCRIT 30.9 % (35.0-46.0); HEMO FLAGS DIFF FINAL; LYMPH % 14.2 % (9.0-44.0); LYMPHOCYTE # 0.7 TH/MM3 (1.0-4.8); MEAN CELL VOLUME 96.4 FL (80.0-100.0); MEAN CORPUSCULAR HEMOGLOBIN 32.8 PG (27.0-34.0); MONO % 14.9 % (0.0-8.0); NEUT % 68.6 % (16.0-70.0); PLATELET COUNT 170 TH/MM3 (150-450); RED BLOOD COUNT 3.21 MIL/MM3 (4.00-5.30); RED CELL DISTRIBUTION WIDTH 13.3 % (11.6-17.2); WHITE BLOOD COUNT 5.1 TH/MM3 (4.0-11.0)
[2017-07-15 08:00] VITALS: BP 112/59; PULSE 70; RESP 14; TEMP 97.3; O2SAT 91
[2017-07-15 08:00] LABS: BICARBONATE 30.3 MEQ/L (21.0-32.0); POTASSIUM 3.7 MEQ/L (3.5-5.1)
[2017-07-15] MEDS: SODIUM CHLORIDE 0.9% FLUSH 10 ML FLUSH IV FLUSH SCH ×2 (09:00→21:35)
[2017-07-15] MEDS: MAGNESIUM HYDROXIDE SUSP 30 ML CUP PO SCH ×2 (09:18→21:00)
[2017-07-15] MEDS: D5-1/2 NS + KCL 20 MEQ INJ 1,000 ML IV SCH (09:18)
[2017-07-15] MEDS: ENOXAPARIN SODIUM 40 MG/0.4 ML SYRINGE SQ SCH (09:18)
[2017-07-15] MEDS: DOCUSATE SODIUM 100 MG CAP PO SCH ×2 (09:19→21:35)
[2017-07-15] MEDS: LOSARTAN 50 MG TAB PO SCH (09:19)
[2017-07-15] MEDS: HYDROCHLOROTHIAZIDE 12.5 MG CAP PO SCH (09:43)
[2017-07-15] MEDS: FAMOTIDINE 20 MG TAB PO SCH ×2 (09:45→21:34)
[2017-07-15] MEDS: MORPHINE SULFATE 4 MG/ML INJ IV PRN (09:46)
[2017-07-15 12:00] VITALS: BP 147/65; PULSE 76; RESP 16; TEMP 97.3; O2SAT 93
[2017-07-15] MEDS: PANTOPRAZOLE SOD 40 MG DELAYED RELEASE TAB PO SCH (12:39)
[2017-07-15] MEDS ORDERED: BISACODYL 10 MG SUPP RECTAL ONE (15:45)
[2017-07-15 16:00] VITALS: BP 142/67; PULSE 65; RESP 18; TEMP 98; O2SAT 94
--- NOTE | 2017-07-15 18:15 | HHI.PR ---
Subjective Subjective Notes pt c/o abd pain states better today stated was unable to urinate morel was place back in last night pos flatus no BM Objective Vitals/I&O Vital Signs Date Time Temp Pulse Resp B/P Pulse Ox O2 Delivery O2 Flow Rate FiO2 07/15/17 16:00 98.0 65 18 142/67 94 07/13/17 22:27 21 07/12/17 20:03 Nasal Cannula 2.00 Labs Laboratory Tests Test 07/15/17 07:05 White Blood Count 5.1 Red Blood Count 3.21 Hemoglobin 10.5 Hematocrit 30.9 Mean Corpuscular Volume 96.4 Mean Corpuscular Hemoglobin 32.8 Mean Corpuscular Hemoglobin 34.0 Concent Red Cell Distribution Width 13.3 Platelet Count 170 Mean Platelet Volume 9.4 Neutrophils (%) (Auto) 68.6 Lymphocytes (%) (Auto) 14.2 Monocytes (%) (Auto) 14.9 Eosinophils (%) (Auto) 1.9 Basophils (%) (Auto) 0.4 Neutrophils # (Auto) 3.5 Lymphocytes # (Auto) 0.7 Monocytes # (Auto) 0.8 Eosinophils # (Auto) 0.1 Basophils # (Auto) 0.0 CBC Comment DIFF FINAL Differential Comment Sodium Level 137 Potassium Level 3.7 Chloride Level 100 Carbon Dioxide Level 30.3 Anion Gap 7 Blood Urea Nitrogen 17 Creatinine 1.71 Estimat Glomerular Filtration 29 Rate Random Glucose 106 Calcium Level 7.8 Abdomen: Post-op tenderness Extremities: Perfused Narrative Exam abd mild distension Wound Wound : Wound Location: Abdomen Appearance: Clean & Dry A/P Assessment and Plan S/P lap repair of ventral hernia slowly recovering d/c Morel in am ambulate in [facility] for BM Wagner Estrella MD Jul 15, 2017 18:15
[2017-07-15 20:00] VITALS: BP 156/71; PULSE 73; RESP 20; TEMP 98.6; O2SAT 93
[2017-07-15] MEDS: TOPAMAX 100 MG PO SCH (21:34)
[2017-07-15] MEDS: DULoxetine HCl DR 30 MG CAP PO SCH (21:35)
[2017-07-16] VITALS: BP 162/70; PULSE 70; RESP 20; TEMP 97.5; O2SAT 93
[2017-07-16] MEDS: oxyCODONE/ACETAMINOPHEN 10 MG/325 MG TAB PO PRN ×3 (03:27→15:27)
[2017-07-16] MEDS: OXYBUTYNIN CHLORIDE 5 MG TAB PO SCH ×2 (05:26→15:26)
[2017-07-16] MEDS: KETOROLAC TROMETHAMINE 30 MG/ML (IVP) VIAL IVP SCH (05:26)
[2017-07-16 08:00] VITALS: BP 161/81; PULSE 67; RESP 14; TEMP 96.6; O2SAT 95
[2017-07-16] MEDS ORDERED: POLYETHYLENE GLYCOL 17 GM PKG PO ONE (09:00)
[2017-07-16] MEDS: FAMOTIDINE 20 MG TAB PO SCH (09:03)
[2017-07-16] MEDS: ENOXAPARIN SODIUM 40 MG/0.4 ML SYRINGE SQ SCH (09:03)
[2017-07-16] MEDS: DOCUSATE SODIUM 100 MG CAP PO SCH (09:03)
[2017-07-16] MEDS: SODIUM CHLORIDE 0.9% FLUSH 10 ML FLUSH IV FLUSH SCH (09:03)
[2017-07-16] MEDS: MAGNESIUM HYDROXIDE SUSP 30 ML CUP PO SCH (09:03)
[2017-07-16] MEDS: HYDROCHLOROTHIAZIDE 12.5 MG CAP PO SCH (09:03)
[2017-07-16] MEDS: TOPAMAX 100 MG PO SCH (09:03)
[2017-07-16] MEDS: LOSARTAN 50 MG TAB PO SCH (09:03)
[2017-07-16 12:00] VITALS: BP 183/76; PULSE 68; RESP 16; TEMP 98.1; O2SAT 91
--- NOTE | 2017-07-16 13:48 | HHI.DS ---
Discharge Summary Admission Date Jul 11, 2017 at 10:39 Discharge Date: Jul 16, 2017 Admitting Diagnosis Procedures Lap repair suprapubic hernia with mesh Brief History 72 yo F with h/o robot assisted sigmoid resection 6 mths ago with lower transverse hernia presents for elective laparoscopic repair. CBC/BMP: 07/15/17 0705 07/15/17 0705 Significant Findings Laboratory Tests Test 07/15/17 07:05 Red Blood Count 3.21 MIL/MM3 (4.00-5.30) Hemoglobin 10.5 GM/DL (11.6-15.3) Hematocrit 30.9 % (35.0-46.0) Monocytes (%) (Auto) 14.9 % (0.0-8.0) Lymphocytes # (Auto) 0.7 TH/MM3 (1.0-4.8) Creatinine 1.71 MG/DL (0.50-1.00) Calcium Level 7.8 MG/DL (8.5-10.1) Estimat Glomerular Filtration Rate 29 ML/MIN (>89) PE at Discharge Abd soft, mod post op ttp, inc c/d/i, binder in place Hospital Course Post op had significant pain and required multimodal pain management. She had marginal UOP and required fluid bolus and also had urinary retention requiring replacement of morel catheter. Today she has voided twice. Abdominal cramping required flexeril and antispasmodic. She is much better today, pain is controlled, she has been tolerating diet and having bowel movts. Pt Condition on Discharge: Good Discharge Disposition: Discharge Home Discharge Instructions DIET: Follow Instructions for: As Tolerated, No Restrictions Activities you can perform: See Additionl Instruction Other Activity Instructions: Ok to shower. WEar abdominal binder for comfort. Follow up Referrals: Surgical - 2 Weeks with Jass Wilks MD Continued Medications: Alprazolam (Xanax) 0.25 Mg Tab 0.25 MG PO DAILY PRN for ANXIETY, TAB 0 Refills Cyclobenzaprine (Flexeril) 10 Mg Tab 10 MG PO TID PRN for PAIN SCALE 1 TO 10, #90 TAB 0 Refills Docusate Sodium (Docusate Sodium) 100 Mg Cap 100 MG PO BID PRN for COUGH, #60 CAP [address] (Cymbalta DR) 30 Mg Capdr 30 MG PO HS, #30 CAP 0 Refills Frovatriptan (Frova) 2.5 Mg Tab 1 TAB PO DIRECTED PRN for HEADACHE Hydrocodone-Acetaminophen (Hydrocodone-Acetaminophen) 10-325 mg Tab 1 TAB PO TID PRN for PAIN, TAB 0 Refills Losartan-Hydrochlorothiazide (Losartan-Hydrochlorothiazide) 100-12.5 Mg Tab 1 TAB PO DAILY for Blood Pressure Management, #30 TAB 0 Refills Ondansetron (Zofran) 4 Mg Tab 4 MG PO Q6HR PRN for NAUSEA OR VOMITING, TAB 0 Refills Ondansetron Odt (Zofran Odt) 4 Mg Tab 4 MG SL Q6HR PRN for Nausea/Vomiting, #20 TAB 0 Refills Pantoprazole (Protonix) 40 Mg Tab 40 MG PO DAILY for Reflux, #30 TAB 0 Refills Ranitidine (Ranitidine) 300 Mg Tab 300 MG PO HS for Heartburn Management, #30 TAB 0 Refills Topiramate (Topamax) 100 Mg Tab 100 MG PO BID for Control Seizures, #60 TAB 0 Refills cannot take generic Jass Wilks MD Jul 16, 2017 13:48
[2017-07-16] MEDS: PANTOPRAZOLE SOD 40 MG DELAYED RELEASE TAB PO SCH (15:27)
== END 2017-07-16 16:06 | disposition home or self-care (01) ==
LOC: HSDC 05:37 → INTOOBSV 10:39 → HSDI 10:39 → N07A 14:32
PROVIDERS: ADMIT Surgery; ATTEND Surgery
DX: K43.2 Incisional hernia without obstruction or gangrene (principal); R33.9 Retention of urine, unspecified; R10.9 Unspecified abdominal pain; Z98.0 Intestinal bypass and anastomosis status; R12 Heartburn; I10 Essential (primary) hypertension; R60.9 Edema, unspecified; G43.909 Migraine, unspecified, not intractable, without status migrainosus
CPT/HCPCS: 00832; 49654; 76937; 80048; 85025; 94150; 96361; 96372; 96374; 96375; 96376; C1781; G0378; J0131; J1100; J1650; J1885; J2250; J2270; J2405; J2710; J2795; J3010; J3480; J7120

== ENCOUNTER 2017-07-16 22:44 | Inpatient (IN) | payer MEDICARE, OTHER ==
[~2017-07-16] VITALS: Ht 160 cm; Wt 51.0 kg
[2017-07-16 23:03] VITALS: BP 181/82; PULSE 104; RESP 22; TEMP 98.7; O2SAT 98
[2017-07-16] MEDS ORDERED: SODIUM CHLOR 0.9% 1000 ML INJ 1,000 ML IV SCH (23:04)
[2017-07-16] MEDS ORDERED: SODIUM CHLORIDE 0.9% FLUSH 10 ML FLUSH IV FLUSH PRN (23:15)
[2017-07-16] MEDS ORDERED: MORPHINE SULFATE 4 MG/ML INJ IV PUSH ONE (23:15)
[2017-07-16] MEDS ORDERED: diphenhydrAMINE HCL 50 MG/ML VIAL IV PUSH ONE (23:30)
[2017-07-16] MEDS ORDERED: PROCHLORPERAZINE INJ 10 MG/2 ML VIAL IV PUSH ONE (23:30)
[2017-07-16 23:41] LABS: AUTOMATED NEUTROPHIL # 3.8 TH/MM3 (1.8-7.7); BASOPHIL % 0.2 % (0.0-2.0); EOSINOPHIL # 0.1 TH/MM3 (0-0.4); EOSINOPHIL % 1.9 % (0.0-4.0); HEMATOCRIT 33.6 % (35.0-46.0); HEMO FLAGS DIFF FINAL; LYMPH % 11.1 % (9.0-44.0); LYMPHOCYTE # 0.5 TH/MM3 (1.0-4.8); MEAN CELL VOLUME 96.3 FL (80.0-100.0); MEAN CORPUSCULAR HEMOGLOBIN 32.8 PG (27.0-34.0); MONO % 8.3 % (0.0-8.0); NEUT % 78.5 % (16.0-70.0); PLATELET COUNT 241 TH/MM3 (150-450); RED BLOOD COUNT 3.49 MIL/MM3 (4.00-5.30); RED CELL DISTRIBUTION WIDTH 13.4 % (11.6-17.2); WHITE BLOOD COUNT 4.9 TH/MM3 (4.0-11.0)
[2017-07-17] VITALS (7 sets, daily range): BP systolic 137–192; BP diastolic 77–89; PULSE 88–115; RESP 14–20; TEMP 97.5–99.1; O2SAT 90–95
[2017-07-17 00:08] LABS: BICARBONATE 27.3 MEQ/L (21.0-32.0); POTASSIUM 3.6 MEQ/L (3.5-5.1)
--- NOTE | 2017-07-17 00:50 | PD ---
HPI . Postoperative pain and vomiting Chief Complaint: Abdominal Pain Time Seen by Provider: 23:02 Travel History International Travel<30 days: No Contact w/Intl Traveler<30days: No Traveled to known affect area: No History of Present Illness HPI This patient presents to us with the chief complaint of severe pain associated with nausea and vomiting. This patient is status post repair of suprapubic hernia [address] Wilks. She was just discharged earlier today around 3- 4pm. She had a longer hospital stay due to pos-operative pain, constipation and urinary retention. She has subsequently developed the acute onset of severe pain this evening around 8pm at the operative site associated with nausea and vomiting. She took off her binder because of the pain. Pain is exacerbated by movement. No relieving factor. She has not urinated since before discharge today. PFSH Past Medical History Arthritis: Yes Asthma: No Heart Rhythm Problems: No Cancer: No Cardiovascular Problems: Yes High Cholesterol: No Chest Pain: No Congestive Heart Failure: No COPD: No Diabetes: No Diminished Hearing: No Endocrine: No Gastrointestinal Disorders: Yes (gerd, diverticultits) GERD: Yes Glaucoma: No Genitourinary: No Hepatitis: No Hiatal Hernia: No Heparin Induced Thrombocytopen: No Hypertension: Yes Immune Disorder: Yes (fibromylagia) Implanted Vascular Access Dvce: No Kidney Stones: Yes Medical other: No Musculoskeletal: No Neurologic: No Psychiatric: No Reproductive: No Respiratory: No Immunizations Current: Yes (FLU SHOT 2016) Migraines: Yes Radiation Therapy: No Renal Failure: No Sickle Cell Disease: No Sleep Apnea: No Thyroid Disease: No Ulcer: No Menopausal: Yes Past Surgical History Abdominal Surgery: Yes (appendectomy, SIGMOID COLON RESECTION) AICD: No Appendectomy: Yes (AT 13 YEARS OF AGE) Arteriovenous Shunt: No Body Medical Devices: NECK HARDWARE, BREAST IMPLANTS Cardiac Surgery: No Ear Surgery: No Endocrine Surgery: No Eye Surgery: No Genitourinary Surgery: No Gynecologic Surgery: Yes (hysterectomy) Hysterectomy: Yes (AT 33 YEARS OF AGE) Insulin Pump: No Joint Replacement: No Neurologic Surgery: No Oral Surgery: Yes (tonsillectomy) Pacemaker: No Thoracic Surgery: Yes (BREAST AUGMENTATION) Tonsillectomy: Yes Other Surgery: Yes (INCISIONAL HERNIA REPAIR 2017 ) Social History Alcohol Use: Yes (daily a wine or two) Tobacco Use: No Substance Use: No Allergies-Medications (Allergen,Severity, Reaction): Coded Allergies: hydromorphone (Unverified Allergy, Severe, Hallucinations, 07/16/17) topiramate (Unverified Allergy, Severe, 07/16/17) brand name topamax only is ok tramadol (Unverified Allergy, Unknown, Itching, 07/16/17) Reported Meds & Prescriptions Reported Meds & Active Scripts Active Zofran Odt (Ondansetron Odt) 4 Mg Tab 4 Mg SL Q6HR PRN Reported Docusate Sodium 100 Mg Cap 100 Mg PO BID PRN Losartan-Hydrochlorothiazide 100-12.5 Mg Tab 1 Tab PO DAILY Cymbalta DR (Duloxetine HCl) 30 Mg Capdr 30 Mg PO HS Zofran (Ondansetron HCl) 4 Mg Tab 4 Mg PO Q6HR PRN Xanax (Alprazolam) 0.25 Mg Tab 0.25 Mg PO DAILY PRN Protonix (Pantoprazole Sodium) 40 Mg Tab 40 Mg PO DAILY Topamax (Topiramate) 100 Mg Tab 100 Mg PO BID cannot take generic Hydrocodone-Acetaminophen 10-325 mg Tab 1 Tab PO TID PRN Flexeril (Cyclobenzaprine HCl) 10 Mg Tab 10 Mg PO TID PRN Frova (Frovatriptan) 2.5 Mg Tab 1 Tab PO DIRECTED PRN Ranitidine (Ranitidine HCl) 300 Mg Tab 300 Mg PO HS Review of Systems Except as stated in HPI: all other systems reviewed are Neg General / Constitutional: No: Fever, Chills Gastrointestinal: Positive: Nausea, Vomiting, Abdominal Pain, No: Diarrhea Physical Exam Narrative GENERAL: This is a very gonzalez patient is lying in the left position with an emesis bag by her mouth. She appears to be in pain. SKIN: Warm and dry. HEAD: Atraumatic. Normocephalic. EYES: Pupils equal and round. ENT: No nasal bleeding or discharge. Mucous membranes pink and moist. NECK: Trachea midline. CARDIOVASCULAR: Regular rate and rhythm. Heart sounds normal. RESPIRATORY: No accessory muscle use. Lungs clear with good air movement throughout. GASTROINTESTINAL: Abdomen is diffusely tender. She has a bulge in the left suprapubic area consistent with a hernia. She is extremely tender there. MUSCULOSKELETAL: No obvious deformities. No edema. NEUROLOGICAL: Awake and alert. No obvious cranial nerve deficits. Motor grossly within normal limits. Normal speech. PSYCHIATRIC: Appropriate mood and affect; insight and judgment normal. Data Data Last Documented VS Vital Signs Date Time Temp Pulse Resp B/P (MAP) Pulse Ox O2 Delivery O2 Flow Rate FiO2 07/16/17 23:03 98.7 104 22 181/82 (115) 98 Orders Orders Basic Metabolic Panel (Bmp) (07/16/17 23:04) Complete Blood Count With Diff (07/16/17 23:04) Ct Abd/Pel W Iv Contrast(Rout) (07/16/17 23:04) Iv Access Insert/Monitor (07/16/17 23:04) Morphine Inj (Morphine Inj) (07/16/17 23:15) Sodium Chlor 0.9% 1000 Ml Inj (Ns 1000 M (07/16/17 23:04) Sodium Chloride 0.9% Flush (Ns Flush) (07/16/17 23:15) Prochlorperazine Inj (Compazine Inj) (07/16/17 23:30) Diphenhydramine Inj (Benadryl Inj) (07/16/17 23:30) ^ Straight Catheter (07/17/17 00:56) Morphine Inj (Morphine Inj) (07/17/17 01:15) Urinalysis - C+S If Indicated (07/17/17 01:14) Lactic Acid (07/17/17 01:17) Iohexol 350 Inj (Omnipaque 350 Inj) (07/17/17 01:30) Urine Culture (07/17/17 01:25) ^ Patient Temperature (07/17/17 01:40) Blood Culture (07/17/17 01:58) Ceftriaxone Inj (Rocephin Inj) (07/17/17 02:00) Azithromycin Inj (Zithromax Inj) (07/17/17 02:00) Chest, Single Ap (07/17/17 02:02) Admit Order (Ed Use Only) (07/17/17 02:03) Labs Laboratory Tests Test 07/16/17 23:18 07/17/17 01:25 07/17/17 01:55 White Blood Count 4.9 TH/MM3 Red Blood Count 3.49 MIL/MM3 Hemoglobin 11.4 GM/DL Hematocrit 33.6 % Mean Corpuscular Volume 96.3 FL Mean Corpuscular Hemoglobin 32.8 PG Mean Corpuscular Hemoglobin Concent 34.0 % Red Cell Distribution Width 13.4 % Platelet Count 241 TH/MM3 Mean Platelet Volume 9.1 FL Neutrophils (%) (Auto) 78.5 % Lymphocytes (%) (Auto) 11.1 % Monocytes (%) (Auto) 8.3 % Eosinophils (%) (Auto) 1.9 % Basophils (%) (Auto) 0.2 % Neutrophils # (Auto) 3.8 TH/MM3 Lymphocytes # (Auto) 0.5 TH/MM3 Monocytes # (Auto) 0.4 TH/MM3 Eosinophils # (Auto) 0.1 TH/MM3 Basophils # (Auto) 0.0 TH/MM3 CBC Comment DIFF FINAL Differential Comment Blood Urea Nitrogen 15 MG/DL Creatinine 1.19 MG/DL Random Glucose 88 MG/DL Calcium Level 9.0 MG/DL Sodium Level 137 MEQ/L Potassium Level 3.6 MEQ/L Chloride Level 102 MEQ/L Carbon Dioxide Level 27.3 MEQ/L Anion Gap 8 MEQ/L Estimat Glomerular Filtration Rate 45 ML/MIN Urine Color LIGHT-YELLOW Urine Turbidity CLEAR Urine pH 8.0 Urine Specific [place] 1.011 Urine Protein NEG mg/dL Urine Glucose (UA) NEG mg/dL Urine Ketones 10 mg/dL Urine Occult Blood NEG Urine Nitrite NEG Urine Bilirubin NEG Urine Urobilinogen LESS THAN 2.0 MG/DL Urine Leukocyte Esterase LARGE Urine RBC 3 /hpf Urine WBC 32 /hpf Urine Squamous Epithelial Cells 1 /hpf Urine Transitional Epithelial Cells 1 /hpf Urine Amorphous Sediment RARE Urine Mucus FEW /lpf Microscopic Urinalysis Comment CATH-CULTURE IND Lactic Acid Level 0.8 mmol/L [facility] Medical Decision Making Medical Screen Exam Complete: Yes Emergency Medical Condition: Yes Medical Record Reviewed: Yes (the patient underwent repair of the left inguinal incisional hernia on 07/11. Her postoperative course was complicated by difficult pain management. She felt better today and was discharged home.) Differential Diagnosis Differential diagnosis of abdominal pain includes but is not limited to gastritis, pancreatitis, hepatitis, gastroenteritis, gallbladder disease, constipation, urinary retention, UTI, peptic ulcer disease, diverticulitis or appendicitis Narrative Course This patient presents with postoperative pain associated with nausea and vomiting. IV access has been obtained. She is receiving IV fluids. She was initially treated with Zofran for vomiting and morphine for pain. Basic labs have been ordered as well as a CT to rule out obstruction or re-incarceration of the hernia. She was straight cathed due to suspected urinary retention and 300mL of urine was collected. CBC & BMP Diagram 07/16/17 23:18 Calcium Level 9.0 # There has been no significant change in her CBC. Her renal function has improved since yesterday. UA has positive leukocyte esterase, 32 WBCs. Culture is pending. Rocephin has been ordered. CT of her abdomen and pelvis shows a right lung base consolidation. Chest x-ray , blood cultures and appropriate antibiotics have been ordered. Lactic acid was already drawn. CT also shows a loculated fluid collection in the area of the recent surgery. The differential diagnosis includes seroma or abscess. This patient will be admitted to medicine with surgical consultation. Physician Communication Physician Communication Dr. Riojas Diagnosis Primary Impression: Right lower lobe pneumonia Qualified Codes: J18.1 - Lobar pneumonia, unspecified organism Additional Impressions: Urinary tract infection Qualified Codes: N30.00 - Acute cystitis without hematuria Vomiting Qualified Codes: R11.2 - Nausea with vomiting, unspecified Postoperative pain Admitting Information Admitting Physician Requests: Admit Condition: Stable Vilma Del Cid MD Jul 17, 2017 00:50
[2017-07-17] MEDS ORDERED: MORPHINE SULFATE 4 MG/ML INJ IV PUSH ONE (01:15)
[2017-07-17] MEDS ORDERED: IOHEXOL 350 MG/ML 10 ML VIAL (for RAD DIAG) IVCONTRAST ONE (01:30)
[2017-07-17 01:37] LABS: BLOOD, URINE NEG (NEG); COMMENT (UR) CATH-CULTURE IND; CULTURE IF INDICATED CATH CULTURE IND; GLUCOSE,URINE NEG (NEG); KETONE, URINE 10 mg/dL (NEG); MUCUS URINE FEW /lpf (OCC); NITRITE,URINE NEG (NEG); SQUAMOUS EPITHELIAL CELL URINE 1 /hpf (0-5); TRANSITIONAL EPI CELLS, URINE 1 /hpf; URINE COLOR LIGHT-YELLOW (YELLW/STRAW)
--- NOTE | 2017-07-17 01:44 | RADRPT ---
EXAM DATE/TIME: 07/17/2017 01:23 [facility] COMPARISON: No previous studies available for comparison. INDICATIONS : Hernia repair 3 days ago, sudden onset pain and nausea/vomiting. IV CONTRAST: 96 cc Omnipaque 350 (iohexol) IV ORAL CONTRAST: No oral contrast ingested. RADIATION DOSE: 8.73 CTDIvol (mGy) MEDICAL HISTORY : Gastroesophageal reflux disease. Diverticulitis. Cardiovascular diseaseFibromyalgia. Hypertension. Re nal calculi. SURGICAL HISTORY : Hysterectomy. Appendectomy. Colon resection. ENCOUNTER: Initial ACUITY: 1 day PAIN SCALE: 10/10 LOCATION: Bilateral abdomen TECHNIQUE: Volumetric scanning of the abdomen and pelvis was performed. Using automated exposure control and ad justment of the mA and/or kV according to patient size, radiation dose was kept as low as reasonably achievable to obtain optimal diagnostic quality images. DICOM format image data is available electro nically for review and comparison. FINDINGS: There is dense consolidation in the right lower lobe most characteristic of pneumonia. Small bilatera l pleural effusions. Previous breast augmentation. No acute findings identified within the liver, spleen, adrenals, kidneys or pancreas. Small bilateral renal cysts. There is a small amount of pneumoperitoneum. Patient is status post hernia repair in the lower anteri or abdominal wall and inguinal region, reportedly 3 days ago. There is a loculated fluid collection i n the lower anterior abdominal wall measuring about 5.5 cm in diameter. There is a small amount of fr ee fluid in the abdomen and pelvis. There is previous partial sigmoid resection with adama present. No acute bony abnormalities. There is a hiatal hernia. Mild rotatory lumbar levoscoliosis. CONCLUSION: 1. Pneumoperitoneum and mild ascites which may be related to recent hernia repair in the lower anteri or abdominal wall. 2. Loculated fluid in the anterior abdominal wall inferiorly measuring up to 5.5 cm in diameter. Diff erential diagnosis includes post op seroma but cannot exclude infection. 3. Dense consolidation right lung base most characteristic of pneumonia with small bilateral pleural effusions and basilar atelectasis. 4. Small bilateral renal cysts. Tiny nonobstructing calculus lower pole right kidney. Ezio Zamarripa MD on July 17, 2017 at 1:33 Board Certified Radiologist. This report was verified electronically.
[2017-07-17] MEDS: cefTRIAXone INJ 1,000 MG in SODIUM CHLORIDE 0.9% INJ 100 ML IV SCH (02:00)
[2017-07-17] MEDS ORDERED: AZITHROMYCIN INJ 500 MG in SODIUM CHLOR 0.9% 250 ML INJ 250 ML IV ONE (02:00)
[2017-07-17] MEDS ORDERED: cefTRIAXone INJ 1,000 MG in SODIUM CHLORIDE 0.9% INJ 100 ML IV ONE (02:00)
--- NOTE | 2017-07-17 02:18 | RADRPT ---
EXAM DATE/TIME: 07/17/2017 02:16 [facility] COMPARISON: CHEST SINGLE AP, November 04, 2016, 12:29. INDICATIONS : Hernia repair surgery one week ago, weakness and vomiting since. MEDICAL HISTORY : Hypertension. Gastroesophageal reflux disease. Diverticulitis. Cardiovascular diseaseFibromyalg ia. SURGICAL HISTORY : Appendectomy. Hysterectomy. Inguinal hernia repair. Colon resection ENCOUNTER: Initial ACUITY: 1 week PAIN SCORE: 8/10 LOCATION: Bilateral chest FINDINGS: A single view of the chest demonstrates bilateral airspace disease mostly perihilar and basilar. Smal l effusions. Heart size upper limits normal. CONCLUSION: 1. Basilar and perihilar airspace disease with small effusions. Differential diagnosis includes pneum onia, possibly with some underlying pulmonary edema as well. Ezio Zamarripa MD on July 17, 2017 at 2:15 Board Certified Radiologist. This report was verified electronically.
[2017-07-17] MEDS ORDERED: SODIUM CHLOR 0.9% 1000 ML INJ 1,000 ML IV SCH (02:23)
[2017-07-17] MEDS ORDERED: MORPHINE SULFATE 4 MG/ML INJ IV PRN ×3 (02:30→14:30)
[2017-07-17] MEDS ORDERED: AZITHROMYCIN INJ 500 MG in SODIUM CHLOR 0.9% 250 ML INJ 250 ML IV SCH (02:30)
[2017-07-17] MEDS ORDERED: SENNOSIDES 8.6 MG TAB PO PRN (02:30)
[2017-07-17] MEDS ORDERED: SODIUM CHLORIDE 0.9% FLUSH 10 ML FLUSH IV FLUSH PRN (02:30)
[2017-07-17] MEDS ORDERED: ACETAMINOPHEN 325 MG TAB PO PRN (02:30)
[2017-07-17] MEDS ORDERED: RESP: ALBUTEROL 2.5 MG/IPRATROPIUM 0.5 MG NEB (PRN) INH (02:30)
[2017-07-17] MEDS ORDERED: BISACODYL 10 MG SUPP RECTAL PRN (02:30)
[2017-07-17] MEDS ORDERED: diphenhydrAMINE HCL 50 MG/ML VIAL IV PUSH PRN (02:30)
[2017-07-17] MEDS ORDERED: guaiFENesin/DEXTROMETHORPHAN 200 MG/20 MG/10 ML CUP PO PRN (02:30)
[2017-07-17] MEDS ORDERED: LACTULOSE SYRUP 20 GM/30 ML CUP PO PRN (02:30)
[2017-07-17] MEDS: ENOXAPARIN SODIUM 40 MG/0.4 ML SYRINGE SQ SCH (02:52)
[2017-07-17] MEDS: SODIUM CHLORIDE 0.9% FLUSH 10 ML FLUSH IV FLUSH SCH ×2 (09:31→20:34)
--- NOTE | 2017-07-17 09:50 | MH ---
cc: MARIA LUISA BONNER MD DATE OF ADMISSION: 07/17/2017 DATE OF : 1945 Travel in the last 30 days: None. HISTORY OF PRESENT ILLNESS This is a pleasant, uncomfortable 72-year-old white female that had a suprapubic hernia repair [address] Wilks. She was doing fine in the hospital, was passing gas, had a bowel movement before she left and went home yesterday on 07/15. She had felt like she was doing well but had acute onset of nausea and vomiting. She states that she was passing gas in the hospital but has not passed any gas since she got here. She has had no bowel movement since DC and she has not voided. She is still having episodes of nausea and spitting up some white, clear mucus. She has continued to have extreme abdominal pain. On examination the patient has lower abdominal firmness which could be her bladder. I have ordered a Reyna catheter to be placed in and intensive I&O to be measured. The patient otherwise denies any other symptoms of chest pain, no shortness of breath, no headache. She initially was hypertensive but blood pressure is down now to 160/77. PAST MEDICAL HISTORY 1. Arthritis. 2. Cardiovascular problems. 3. Gastroesophageal reflux disease. 4. Diverticulitis. 5. Recent surgical suprapubic hernia repair, laparoscopic. 6. Fibromyalgia. 7. Kidney stones. 8. She did have the flu shot. 9. She has a history of migraines. 10. She is hypertensive. PAST SURGICAL HISTORY 1. Sigmoid colon resection. 2. Appendectomy. 3. Neck hardware. 4. Breast implants. 5. Hysterectomy. 6. Tonsillectomy. ALLERGIES HYDROMORPHONE, TRAMADOL, TOPRIAMATE. MEDICATIONS Reported: 1. Stool softeners. 2. Losartan. 3. Hydrochlorothiazide. 4. Cymbalta. 5. Zofran. 6. Xanax. 7. Topamax. 8. Protonix. 9. Hydrocodone pain management postop. 10. Flexeril. 11. Frova. 12. Zantac. SOCIAL HISTORY The patient lives with her boyfriend. Denies any substance abuse. No tobacco abuse. Daily wine one to two glasses. REVIEW OF SYSTEMS A 12-point review was obtained. Positives noted in HPI which include acute onset of not voiding, nausea, vomiting, hypertension, lower abdominal pain, possible dehydration. Not passing flatus since going home. Other systems mentioned in HPI, otherwise systems negative or unremarkable. VITAL SIGNS: Temperature is 98.7, pulse 99, was 104 when she first came in, respirations are 17, blood pressure 160/77, has been as high as 192/81, O2 sat 93, currently on 3 liters nasal cannula, which was decreased from 4 liters earlier. PHYSICAL EXAMINATION GENERAL: Slim, well-nourished white female, looks younger than her stated age, resting in the bed. She is obviously acutely sick with some nausea and vomiting and lower abdominal pain. SKIN: Skin is pink mucous membranes, warm and dry. HEENT: Atraumatic, normocephalic. PERRLA. Mucous membranes are slightly dry. NECK: Neck is supple. CARDIOVASCULAR: S1-S2. No obvious murmur. LUNGS: Lungs are essentially clear anteriorly and posteriorly with no wheezes. ABDOMEN: Abdomen is round, taut. She does have some obvious distension/or swelling in her lower abdomen. It is taut, semi-firm to touch, very painful on light palpation. : No urine to be observed yet. MUSCULOSKELETAL: Moves all extremities with purpose. No obvious deformities. NEUROLOGIC: Alert, good historian. Speech is clear. PSYCHIATRIC: Mood and affect are appropriate. DIAGNOSTIC DATA WBC count 4.9, RBC 3.49, hemoglobin 11.4, hematocrit 33.6, neutrophil count 78.5, monocyte count 8.3. Chemistry sodium 137, potassium 3.6, chloride 102, carbon dioxide 27.3, BUN 15, creatinine 1.19, GFR 45, random glucose 88, lactic acid 0.8. Urine was collected, large amount of leukocyte esterase, yellow clear, specific gravity 1.011, negative for protein, glucose, occult blood, nitrites or bilirubin, 10 on her ketones, culture has been ordered and is pending. Blood cultures are also pending. IMAGING STUDIES Imaging studies show abdominal/pelvic CT shows pneumoperitoneum with mild ascites, may be related to recent hernia repair, loculated fluid in the anterior abdominal wall inferiorly measuring 5.5 cm, possible postop seroma but cannot exclude infection, dense consolidation right lung consistent with pneumonia with small bilateral effusions and basilar atelectasis, small bilateral renal cyst. ASSESSMENT/PLAN 1. Possible pneumonia right lung with bilateral pleural effusions. 2. Possible pneumoperitoneum with mild ascites. 3. Recent suprapubic hernia repair, laparoscopic times [address] Wilks. 4. Pain control, pain management, uncontrolled. 5. UTI. 6. Acute kidney injury. 7. Mild tachycardia, labile. 8. Mild hypertension. Our plan is to admit. Labs will be monitored closely. The patient has received some gentle hydration. Will put a hold on that for right now until Reyna catheter is placed inpatient. She states since admission urine was collected at 0130. DVT prophylaxis with Lovenox, O2 p.r.n., pain management, heart healthy diet. Will monitor intake and output. The patient has received Rocephin, Azithromycin, Vasotec is ordered p.r.n. for blood pressure uncontrolled 180 or greater, [address] Wilks has been consulted, general surgery consult and we will follow her needs based on the findings and her response to treatment. Dictated by: KEANU Smith Maria Luisa Bonner MD MNA/TLL /8:49 AM /9:45 AM PT IS SEEN & EXAMINED D/W pt & HER DAUGHTER AT BEDSIDE S/P RECENT LAP HERNIA REPAIR ABD PAIN / INTRAABD FLUID COLLECTION possible seroma UTI atelectasis Vs Infiltrate ch back pain /narcotic dependence d/w luda see orders will f/u Maria Luisa Bonner MD Jul 17, 2017 12:52 MTDD
[2017-07-17] MEDS: ONDANSETRON HCL 4 MG/2 ML VIAL IV PRN ×2 (10:32→17:43)
--- NOTE | 2017-07-17 12:53 | HHI.PR ---
Objective Objective Results - Vital Signs Date Time Temp Pulse Resp B/P (MAP) Pulse Ox O2 Delivery O2 Flow Rate FiO2 07/17/17 11:24 97.5 88 18 176/78 (110) 90 07/17/17 11:10 07/17/17 09:00 92 20 165/86 (112) 95 07/17/17 06:00 99 17 160/77 (104) 93 Nasal Cannula 3.00 07/17/17 02:53 115 14 192/81 (118) 95 Nasal Cannula 3.00 07/17/17 02:51 92 Nasal Cannula 4.00 07/16/17 23:03 98.7 104 22 181/82 (115) 98 Result Diagram: 07/16/17231707/16/172317 Other Results Laboratory Tests Test 07/16/17 23:18 07/17/17 01:25 07/17/17 01:55 White Blood Count 4.9 Red Blood Count 3.49 Hemoglobin 11.4 Hematocrit 33.6 Mean Corpuscular Volume 96.3 Mean Corpuscular Hemoglobin 32.8 Mean Corpuscular Hemoglobin Concent 34.0 Red Cell Distribution Width 13.4 Platelet Count 241 Mean Platelet Volume 9.1 Neutrophils (%) (Auto) 78.5 Lymphocytes (%) (Auto) 11.1 Monocytes (%) (Auto) 8.3 Eosinophils (%) (Auto) 1.9 Basophils (%) (Auto) 0.2 Neutrophils # (Auto) 3.8 Lymphocytes # (Auto) 0.5 Monocytes # (Auto) 0.4 Eosinophils # (Auto) 0.1 Basophils # (Auto) 0.0 CBC Comment DIFF FINAL Differential Comment Blood Urea Nitrogen 15 Creatinine 1.19 Random Glucose 88 Calcium Level 9.0 Sodium Level 137 Potassium Level 3.6 Chloride Level 102 Carbon Dioxide Level 27.3 Anion Gap 8 Estimat Glomerular Filtration Rate 45 Urine Color LIGHT-YELLOW Urine Turbidity CLEAR Urine pH 8.0 Urine Specific [place] 1.011 Urine Protein NEG Urine Glucose (UA) NEG Urine Ketones 10 Urine Occult Blood NEG Urine Nitrite NEG Urine Bilirubin NEG Urine Urobilinogen LESS THAN 2.0 Urine Leukocyte Esterase LARGE Urine RBC 3 Urine WBC 32 Urine Squamous Epithelial Cells 1 Urine Transitional Epithelial Cells 1 Urine Amorphous Sediment RARE Urine Mucus FEW Microscopic Urinalysis Comment CATH-CULTURE IND Lactic Acid Level 0.8 Date/Time Source Procedure Growth Status 07/17/17 02:15 Blood Peripheral Aerobic Blood Culture Pending Received 07/17/17 02:15 Blood Peripheral Anaerobic Blood Culture Pending Received 07/17/17 01:25 Urine Catheterized Urine Urine Culture Pending Received Physical Exam Physical Exam PT IS SEEN & EXAMINED D/W pt & HER DAUGHTER AT BEDSIDE S/P RECENT LAP HERNIA REPAIR ABD PAIN / INTRAABD FLUID COLLECTION possible seroma UTI atelectasis Vs Infiltrate ch back pain /narcotic dependence d/w luda see orders will f/u Maria Luisa Bonner MD Jul 17, 2017 12:52
[2017-07-17] MEDS ORDERED: oxyCODONE/ACETAMINOPHEN 5 MG/325 MG TAB PO PRN (13:00)
[2017-07-17] MEDS ORDERED: DIATRIZOATE MEG 30% 300 ML BOTTLE (for RAD DIAG) I-VESICULR ONE (16:44)
[2017-07-17] MEDS ORDERED: PHENOL 1.4% SOLN 180 ML BTL OROPHARYNG PRN (17:15)
--- NOTE | 2017-07-17 17:25 | PD.CONS ---
HPI Service General Surgery Consult Requested By Reason for Consult Abdominal pain, recent post op Primary Care Physician Lorena Villa D.O. History of Present Illness Ms. Jefferson is a 72 yo F 6 days post op from lap suprapubic hernia repair with mesh. She had a somewhat prolonged post op hospitalization due to pain and ileus, and went home yesterday. She returned to the ED last night with complaints of abdominal pain, nausea, and vomiting. She was noted on CT to have seroma and some intraabdominal fluid. UA showed probable UTI. CT showed some consolidation in the RLL of her lung possible pneumonia. Review of Systems Constitutional: DENIES: Fever, Chills Eyes: DENIES: Eye inflammation, Eye pain Respiratory: DENIES: Cough, Shortness of breath Cardiovascular: DENIES: Chest pain, Palpitations Gastrointestinal: COMPLAINS OF: Abdominal pain, Nausea, Vomiting Musculoskeletal: COMPLAINS OF: Back pain Integumentary: DENIES: Pruritus, Rash Neurologic: DENIES: Paresthesias, Seizures Past Family Social History Past Medical History GERD Chronic back pain HTN H/o Diverticulitis requiring resection Past Surgical History Sigmoid resection Appendectomy Hysterectomy Reported Medications Reported Meds & Active Scripts Active Zofran Odt (Ondansetron Odt) 4 Mg Tab 4 Mg SL Q6HR PRN Reported Docusate Sodium 100 Mg Cap 100 Mg PO BID PRN Losartan-Hydrochlorothiazide 100-12.5 Mg Tab 1 Tab PO DAILY Cymbalta DR (Duloxetine HCl) 30 Mg Capdr 30 Mg PO HS Zofran (Ondansetron HCl) 4 Mg Tab 4 Mg PO Q6HR PRN Xanax (Alprazolam) 0.25 Mg Tab 0.25 Mg PO DAILY PRN Protonix (Pantoprazole Sodium) 40 Mg Tab 40 Mg PO DAILY Topamax (Topiramate) 100 Mg Tab 100 Mg PO BID cannot take generic Hydrocodone-Acetaminophen 10-325 mg Tab 1 Tab PO TID PRN Flexeril (Cyclobenzaprine HCl) 10 Mg Tab 10 Mg PO TID PRN Frova (Frovatriptan) 2.5 Mg Tab 1 Tab PO DIRECTED PRN Ranitidine (Ranitidine HCl) 300 Mg Tab 300 Mg PO HS Allergies: Coded Allergies: hydromorphone (Unverified Allergy, Severe, Hallucinations, 07/16/17) topiramate (Unverified Allergy, Severe, 07/16/17) brand name topamax only is ok tramadol (Unverified Allergy, Unknown, Itching, 07/16/17) Active Ordered Medications Current Medications Medications (Trade) Dose Ordered Sig/Daniel Route Start Time Stop Time Status Last Admin (NS Flush) 2 ml UNSCH PRN IV FLUSH 07/16/17 23:15 (NS Flush) 2 ml UNSCH PRN IV FLUSH 07/17/17 02:30 (NS Flush) 2 ml BID IV FLUSH 07/17/17 09:00 07/17/17 09:31 Ceftriaxone Sodium 1000 mg/ Sodium Chloride 100 ml @ 200 mls/hr Q24H IV 07/17/17 02:00 (Tylenol) 650 mg Q4H PRN PO 07/17/17 02:30 (Zofran Inj) 4 mg Q6H PRN IV 07/17/17 02:30 07/17/17 10:32 (Duoneb Neb) 1 ampule Q4HR NEB PRN INH 07/17/17 02:30 (Robitussin Dm 200-20 Mg/10 ml Liq) 10 ml Q4H PRN PO 07/17/17 02:30 (Lovenox Inj) 40 mg Q24H SQ 07/17/17 02:30 07/17/17 02:52 (Senokot) 17.2 mg Q12H PRN PO 07/17/17 02:30 (Dulcolax Supp) 10 mg DAILY PRN RECTAL 07/17/17 02:30 (Lactulose Liq) 30 ml DAILY PRN PO 07/17/17 02:30 (Benadryl Inj) 25 mg Q6H PRN IV PUSH 07/17/17 02:30 Azithromycin 500 mg/Sodium Chloride 250 ml @ 250 mls/hr Q24H IV 07/18/17 02:30 (Vasotec Inj) 2.5 mg Q6H PRN IV PUSH 07/17/17 07:45 (Morphine Inj) 5 mg Q3H PRN IV 07/17/17 14:30 07/17/17 14:04 (Percocet 5-325 Mg) 1 tab Q4H PRN PO 07/17/17 13:00 Family History Noncontributory Social History No tobacco use. Occasionally drinks alcohol. Physical Exam Vital Signs Vital Signs Date Time Temp Pulse Resp B/P (MAP) Pulse Ox O2 Delivery O2 Flow Rate FiO2 07/17/17 15:50 97.7 92 18 178/80 (112) 92 07/17/17 11:24 97.5 88 18 176/78 (110) 90 07/17/17 11:10 07/17/17 09:00 92 20 165/86 (112) 95 07/17/17 06:00 99 17 160/77 (104) 93 Nasal Cannula 3.00 07/17/17 02:53 115 14 192/81 (118) 95 Nasal Cannula 3.00 07/17/17 02:51 92 Nasal Cannula 4.00 07/16/17 23:03 98.7 104 22 181/82 (115) 98 Physical Exam GENERAL: Appears in significant pain. She is in moderate distress. HEAD: Normocephalic. Atraumatic. EYES: Pupils equal round and reactive to light bilaterally. No scleral icterus. NECK: Trachea midline. CHEST: Lungs clear to auscultation bilaterally with no wheezing or rhonchi. No respiratory distress. CARDIOVASCULAR: Regular rate and rhythm. ABDOMEN: Distended. Diffuse moderate tenderness to palpation. No rebound or guarding. Moderate swelling superior and to the left pubis. EXTREMITIES: No cyanosis or edema. SKIN: Warm, dry, nonjaundiced. Laboratory Laboratory Tests Test 07/16/17 23:18 07/17/17 01:25 07/17/17 01:55 White Blood Count 4.9 Red Blood Count 3.49 Hemoglobin 11.4 Hematocrit 33.6 Mean Corpuscular Volume 96.3 Mean Corpuscular Hemoglobin 32.8 Mean Corpuscular Hemoglobin Concent 34.0 Red Cell Distribution Width 13.4 Platelet Count 241 Mean Platelet Volume 9.1 Neutrophils (%) (Auto) 78.5 Lymphocytes (%) (Auto) 11.1 Monocytes (%) (Auto) 8.3 Eosinophils (%) (Auto) 1.9 Basophils (%) (Auto) 0.2 Neutrophils # (Auto) 3.8 Lymphocytes # (Auto) 0.5 Monocytes # (Auto) 0.4 Eosinophils # (Auto) 0.1 Basophils # (Auto) 0.0 CBC Comment DIFF FINAL Differential Comment Blood Urea Nitrogen 15 Creatinine 1.19 Random Glucose 88 Calcium Level 9.0 Sodium Level 137 Potassium Level 3.6 Chloride Level 102 Carbon Dioxide Level 27.3 Anion Gap 8 Estimat Glomerular Filtration Rate 45 Urine Color LIGHT-YELLOW Urine Turbidity CLEAR Urine pH 8.0 Urine Specific [place] 1.011 Urine Protein NEG Urine Glucose (UA) NEG Urine Ketones 10 Urine Occult Blood NEG Urine Nitrite NEG Urine Bilirubin NEG Urine Urobilinogen LESS THAN 2.0 Urine Leukocyte Esterase LARGE Urine RBC 3 Urine WBC 32 Urine Squamous Epithelial Cells 1 Urine Transitional Epithelial Cells 1 Urine Amorphous Sediment RARE Urine Mucus FEW Microscopic Urinalysis Comment CATH-CULTURE IND Lactic Acid Level 0.8 Date/Time Source Procedure Growth Status 07/17/17 02:15 Blood Peripheral Aerobic Blood Culture Pending Received 07/17/17 02:15 Blood Peripheral Anaerobic Blood Culture Pending Received 07/17/17 01:25 Urine Catheterized Urine Urine Culture Pending Received Result Diagram: 07/16/17 2318 07/16/17 2318 Imaging Last Impressions Chest X-Ray 07/17/17 0202 Signed Impressions: Service Date/Time: Monday, July 17, 2017 02:16 - CONCLUSION: 1. Basilar and perihilar airspace disease with small effusions. Differential diagnosis includes pneumonia, possibly with some underlying pulmonary edema as well. Ezio Zamarripa MD Cystogram X-Ray 07/17/17 0000 Signed Impressions: Service Date/Time: Monday, July 17, 2017 17:36 - CONCLUSION: Unremarkable cystogram. Prem Tiwari MD Abdomen/Pelvis CT 07/16/17 2304 Signed Impressions: Service Date/Time: Monday, July 17, 2017 01:23 - CONCLUSION: 1. Pneumoperitoneum and mild ascites which may be related to recent hernia repair in the lower anterior abdominal wall. 2. Loculated fluid in the anterior abdominal wall inferiorly measuring up to 5.5 cm in diameter. Differential diagnosis includes post op seroma but cannot exclude infection. 3. Dense consolidation right lung base most characteristic of pneumonia with small bilateral pleural effusions and basilar atelectasis. 4. Small bilateral renal cysts. Tiny nonobstructing calculus lower pole right kidney. Ezio Zamarripa MD Assessment and Plan Assessment and Plan 72 yo F POD 6 lap suprapubic hernia repair Abdominal pain, probably secondary to ileus Ileus- place NGT to suction. NPO. IVF. UTI- on rocephin PNA vs chest contusion with lung contusion- rocephin/azithromycin per medical team Check cystogram to rule out bladder injury. Jass Wilks MD Jul 17, 2017 17:25
[2017-07-17] MEDS: MORPHINE SULFATE 4 MG/ML INJ IV PRN ×2 (17:34→20:47)
--- NOTE | 2017-07-17 18:45 | RADRPT ---
EXAM DATE/TIME: 07/17/2017 17:36 [facility] COMPARISON: No previous studies available for comparison. INDICATIONS : Rule out bladder injury. 2.0 minutes 10 CONTRAST: cc Cystografin MEDICAL HISTORY : Gastroesophageal reflux disease. Diverticulitis. Cardiovascular diseaseFibromyalgia. SURGICAL HISTORY : Hysterectomy. Appendectomy. Colon resection ENCOUNTER: Subsequent ACUITY: 1 day PAIN SCORE: Non-responsive. LOCATION: Pelvis. FINDINGS: Preliminary film is unremarkable. No abnormal calcifications are identified. Through an indwelling Reyna catheter the bladder was filled in retrograde fashion to adequate distent ion and post images in multiple obliquities were obtained. No extravesicular leakage of contrast is noted. CONCLUSION: Unremarkable cystogram. Prem Tiwari MD on July 17, 2017 at 18:42 Board Certified Radiologist. This report was verified electronically.
[2017-07-17] MEDS: SODIUM CHLOR 0.9% 1000 ML INJ 1,000 ML IV SCH (19:24)
[2017-07-17] MEDS: ACETAMINOPHEN 1000 MG/100 ML VIAL IV SCH (19:56)
[2017-07-18] VITALS (7 sets, daily range): BP systolic 136–156; BP diastolic 63–72; PULSE 80–93; RESP 16–19; TEMP 97–98.6; O2SAT 94–99
[2017-07-18] MEDS: ACETAMINOPHEN 1000 MG/100 ML VIAL IV SCH ×3 (00:58→16:45)
[2017-07-18] MEDS: ENOXAPARIN SODIUM 40 MG/0.4 ML SYRINGE SQ SCH (00:58)
[2017-07-18] MEDS: MORPHINE SULFATE 4 MG/ML INJ IV PRN ×6 (00:59→21:18)
[2017-07-18] MEDS: cefTRIAXone INJ 1,000 MG in SODIUM CHLORIDE 0.9% INJ 100 ML IV SCH (00:59)
[2017-07-18] MEDS: AZITHROMYCIN INJ 500 MG in SODIUM CHLOR 0.9% 250 ML INJ 250 ML IV SCH (04:53)
[2017-07-18] MEDS: SODIUM CHLOR 0.9% 1000 ML INJ 1,000 ML IV SCH ×3 (04:53→23:15)
[2017-07-18] MEDS: ONDANSETRON HCL 4 MG/2 ML VIAL IV PRN ×3 (05:59→21:24)
[2017-07-18] MEDS: SODIUM CHLORIDE 0.9% FLUSH 10 ML FLUSH IV FLUSH SCH ×2 (08:49→21:00)
--- NOTE | 2017-07-18 11:41 | HHI.PR ---
Subjective Subjective Notes She feels much better today. Cystogram was normal. NG with moderate amt of output. Objective Vitals/I&O Vital Signs Date Time Temp Pulse Resp B/P (MAP) Pulse Ox O2 Delivery O2 Flow Rate FiO2 07/18/17 11:03 96 Nasal Cannula 2.00 07/18/17 10:15 18 07/18/17 08:00 97.2 86 144/66 (92) Labs Date/Time Source Procedure Growth Status 07/17/17 02:15 Blood Peripheral Aerobic Blood Culture - Preliminary NO GROWTH IN 1 DAY Resulted 07/17/17 02:15 Blood Peripheral Anaerobic Blood Culture - Preliminary NO GROWTH IN 1 DAY Resulted 07/17/17 01:25 Urine Catheterized Urine Urine Culture Pending Received Narrative Exam NAD nonlabored breathing Abd: soft, nondistended, mild ttp, inc c/d/i ngt 750cc bilious output Morel clear uop A/P Assessment and Plan 72 yo F POD 7 s/p lap suprapubic hernia repair, readmitted for pain and vomiting SIg improved. Cont NG. Cont morel for accurate output. Relistor. Ok for ice chips. Ok for meds with tube clamped. Ambulate. Efe,Jass JOHNSON Jul 18, 2017 11:41
[2017-07-18] MEDS ORDERED: METHYLNALTREXONE BROMIDE 12 MG/0.6 ML VIAL SQ ONE (12:00)
[2017-07-18] MEDS ORDERED: BISACODYL 10 MG SUPP RECTAL ONE (12:00)
[2017-07-18] MEDS: LOSARTAN 50 MG TAB PO SCH (13:33)
[2017-07-18] MEDS: HYDROCHLOROTHIAZIDE 12.5 MG CAP PO SCH (13:33)
[2017-07-18] MEDS: PANTOPRAZOLE SODIUM 40 MG VIAL IV PUSH SCH (13:34)
--- NOTE | 2017-07-18 13:39 | HHI.PR ---
Subjective Subjective Remarks abd. pain improving, controlled NGT to LIS, output 750 cc good urine output weak, but will try to get out of bed no cp no sob no fever family at bsd Review of Systems Constitutional Constitutional Remarks 12 point review of systems completed, negative except as noted above Vitals/Results Vital Signs Vital Signs Date Time Temp Pulse Resp B/P (MAP) Pulse Ox O2 Delivery O2 Flow Rate FiO2 07/18/17 12:00 97.4 83 16 136/63 (87) 99 07/18/17 11:03 96 Nasal Cannula 2.00 07/18/17 10:15 18 07/18/17 09:24 18 07/18/17 08:00 97.2 86 16 144/66 (92) 99 07/18/17 00:00 97.8 93 19 138/67 (90) 94 07/17/17 22:24 93 Nasal Cannula 2.00 07/17/17 21:04 99.1 103 18 137/89 (105) 93 07/17/17 15:50 97.7 92 18 178/80 (112) 92 CBC/BMP: 07/16/17 2318 07/16/17 2318 Physical Exam General General Appearance: Well Developed, Well Nourished, No Acute Distress, Painful Eyes Eye Exam: Pupils Equal, Pupils Reactive Ears & Nose Ears & Nose Exam: Nasal Mucosa [place] Throat Throat Exam: Oral Mucosa [place] & Moist Neck Neck Exam: Neck Supple, Trachea Midline Pulmonary Resp Exam: Decreased Bases Cardiology CV Exam: Regular Gastrointestinal/Abdomen GI Exam: Soft, Non-Distended, Bowel Sounds Hypoactive GI Remarks NG tube to low intermittent suction with green gastric drainage Abdomen tender to palpation Incisions from recent surgery intact Genitourinary Exam: Clear Urine Remarks Reyna catheter Musculoskeletal MS Exam: Joints Intact Integumentary Skin Exam: Warm, Dry Extremeties Extremities Exam: No Edema, Pedal Pulses Palpable Neurologic Neuro Exam: Alert, Awake, Oriented, Speech Clear, Moving All Extremities, No Focal Deficits Psychiatric Psych Exam: Appropriate Responses VTE Prophylaxis VTE Prophylaxis Device: SCDs VTE Prophylaxis Meds: Lovenox PUD Prophylasis PUD Prophylaxis: Protonix Assessment/Plan Problem List: (1) Vomiting ICD Codes: R11.10 - Vomiting, unspecified Status: Acute (2) Right lower lobe pneumonia ICD Codes: J18.1 - Lobar pneumonia, unspecified organism Status: Acute (3) Urinary tract infection ICD Codes: N39.0 - Urinary tract infection, site not specified Status: Acute (4) recent lap suprapubic hernia repair Status: Acute (5) post op seroma Status: Acute (6) Postoperative pain ICD Codes: G89.18 - Other acute postprocedural pain Status: Acute (7) HTN (hypertension) ICD Codes: I10 - Essential (primary) hypertension Status: Chronic (8) CARLOS EDUARDO (acute kidney injury) ICD Codes: N17.9 - Acute kidney failure, unspecified Status: Acute Assessment/Plan Status post lap suprapubic hernia repair, presented with increasing abdominal pain, nausea CT abdomen findings pneumoperitoneum and mild ascites which may be related to recent hernia repair in the lower anterior abdomen wall, loculated fluid, proximally 5.5 cm, possibly postop seroma Appreciate Dr. Wilks's input, recommended to keep NG tube for now, Relistor was given, okay for ice chips with tube clamped. Had cystogram, unremarkable Continue with NG tube to low intermittent suction Continue with IV fluids Continue with Reyna catheter to monitor urine output Pain management Possible pneumonia, was recently hospitalized Continue with antibiotics Will order IS Increase mobility UTI, group D enterococcus Continue with antibiotics Renal function improving Continue with IV fluids Continue with blood pressure management Lovenox for DVT prophylaxis Protonix for GI prophylaxis Labs in the morning Out of bed poss dc in 1-2 days Discussed with patient and family Discussed with Dr. Bonner Discussed with RN This patient was seen by myself and Dr. Bonner, this note is written on his behalf Problem Qualifiers (1) Vomiting: Qualified Codes: R11.2 - Nausea with vomiting, unspecified (2) Right lower lobe pneumonia: Qualified Codes: J18.1 - Lobar pneumonia, unspecified organism (3) Urinary tract infection: Qualified Codes: N30.00 - Acute cystitis without hematuria (4) HTN (hypertension): Qualified Codes: I10 - Essential (primary) hypertension Toshia Jasso Jul 18, 2017 13:39
[2017-07-18 13:51] LABS: AUTOMATED NEUTROPHIL # 7.1 TH/MM3 (1.8-7.7); BASOPHIL % 0.2 % (0.0-2.0); EOSINOPHIL # 0.1 TH/MM3 (0-0.4); EOSINOPHIL % 1.5 % (0.0-4.0); HEMATOCRIT 33.8 % (35.0-46.0); HEMO FLAGS DIFF FINAL; LYMPH % 8.7 % (9.0-44.0); LYMPHOCYTE # 0.8 TH/MM3 (1.0-4.8); MEAN CELL VOLUME 96.5 FL (80.0-100.0); MEAN CORPUSCULAR HEMOGLOBIN 31.8 PG (27.0-34.0); MONO % 10.7 % (0.0-8.0); NEUT % 78.9 % (16.0-70.0); PLATELET COUNT 303 TH/MM3 (150-450); RED CELL DISTRIBUTION WIDTH 13.5 % (11.6-17.2); WHITE BLOOD COUNT 8.9 TH/MM3 (4.0-11.0)
[2017-07-18] MEDS: TOPAMAX 100 MG PO SCH ×2 (13:59→21:18)
[2017-07-18] MEDS ORDERED: HEPARIN SODIUM - SQ 10,000 UNITS/ML VIAL SQ SCH (14:00)
[2017-07-18 14:10] LABS: BICARBONATE 24.2 MEQ/L (21.0-32.0); POTASSIUM 3.8 MEQ/L (3.5-5.1)
[2017-07-18] MEDS ORDERED: VANCOMYCIN INJ 1,000 MG in SODIUM CHLOR 0.9% 250 ML INJ 250 ML IV ONE (17:00)
[2017-07-18] MEDS: DULoxetine HCl DR 30 MG CAP PO SCH ×2 (21:00→21:17)
[2017-07-19] VITALS: BP 127/62; PULSE 72; RESP 17; TEMP 97.8; O2SAT 96
[2017-07-19] MEDS: ACETAMINOPHEN 1000 MG/100 ML VIAL IV SCH ×3 (03:27→17:52)
[2017-07-19] MEDS: ENOXAPARIN SODIUM 40 MG/0.4 ML SYRINGE SQ SCH (03:27)
[2017-07-19] MEDS: cefTRIAXone INJ 1,000 MG in SODIUM CHLORIDE 0.9% INJ 100 ML IV SCH (03:27)
[2017-07-19] MEDS: AZITHROMYCIN INJ 500 MG in SODIUM CHLOR 0.9% 250 ML INJ 250 ML IV SCH (03:28)
[2017-07-19] MEDS: ONDANSETRON HCL 4 MG/2 ML VIAL IV PRN ×3 (05:05→16:28)
[2017-07-19] MEDS: MORPHINE SULFATE 4 MG/ML INJ IV PRN ×6 (05:05→21:29)
[2017-07-19 06:36] LABS: HEMATOCRIT 34.9 % (35.0-46.0); MEAN CELL VOLUME 96.7 FL (80.0-100.0); MEAN CORPUSCULAR HEMOGLOBIN 32.4 PG (27.0-34.0); MEAN CORPUSCULAR HGB CONC 33.5 % (32.0-36.0); PLATELET COUNT 324 TH/MM3 (150-450); RED BLOOD COUNT 3.61 MIL/MM3 (4.00-5.30); RED CELL DISTRIBUTION WIDTH 13.4 % (11.6-17.2); REVIEW FLAG FINAL; WHITE BLOOD COUNT 9.2 TH/MM3 (4.0-11.0)
[2017-07-19 07:01] LABS: BICARBONATE 20.8 MEQ/L (21.0-32.0); POTASSIUM 3.5 MEQ/L (3.5-5.1)
[2017-07-19 08:00] VITALS: BP 172/77; PULSE 92; RESP 16; TEMP 97.7; O2SAT 92
[2017-07-19] MEDS: TOPAMAX 100 MG PO SCH ×2 (09:00→21:29)
[2017-07-19] MEDS: SODIUM CHLORIDE 0.9% FLUSH 10 ML FLUSH IV FLUSH SCH ×2 (09:00→21:00)
[2017-07-19 09:11] VITALS: O2SAT 97
[2017-07-19] MEDS: SODIUM CHLOR 0.9% 1000 ML INJ 1,000 ML IV SCH ×2 (09:15→19:15)
[2017-07-19] MEDS: HYDROCHLOROTHIAZIDE 12.5 MG CAP PO SCH (10:11)
[2017-07-19] MEDS: LOSARTAN 50 MG TAB PO SCH (10:12)
[2017-07-19 12:00] VITALS: BP 159/74; PULSE 95; RESP 16; TEMP 98; O2SAT 97
[2017-07-19] MEDS: PANTOPRAZOLE SODIUM 40 MG VIAL IV PUSH SCH (12:51)
--- NOTE | 2017-07-19 13:43 | HHI.PR ---
Subjective Subjective Remarks abd. pain improving, not as tender to palpation NGT to LIS, output decreasing good urine output no cp no sob no fever had BM yesterday tolerating ice chips family at bsd Review of Systems Constitutional Constitutional Remarks 12 point review of systems completed, negative except as noted above Vitals/Results Intake & Output 07/19/17 07/19/17 07/20/17 15:00 23:00 07:00 Intake Total 250 ml Balance 250 ml IV Total 250 ml Vital Signs Vital Signs Date Time Temp Pulse Resp B/P (MAP) Pulse Ox O2 Delivery O2 Flow Rate FiO2 07/19/17 12:00 98.0 95 16 159/74 (102) 97 07/19/17 09:11 97 Nasal Cannula 2.00 07/19/17 08:00 97.7 92 16 172/77 (108) 92 07/19/17 00:00 97.8 72 17 127/62 (83) 96 07/18/17 21:18 97 Nasal Cannula 2.00 07/18/17 20:32 95 Nasal Cannula 2.00 07/18/17 20:00 98.6 80 18 156/68 (97) 97 07/18/17 17:00 18 07/18/17 17:00 18 07/18/17 16:00 97.0 89 18 154/72 (99) 94 CBC/BMP: 07/19/17 0604 07/19/17 0604 Lab Results Laboratory Tests Test 07/19/17 06:04 White Blood Count 9.2 TH/MM3 Red Blood Count 3.61 MIL/MM3 Hemoglobin 11.7 GM/DL Hematocrit 34.9 % Mean Corpuscular Volume 96.7 FL Mean Corpuscular Hemoglobin 32.4 PG Mean Corpuscular Hemoglobin Concent 33.5 % Red Cell Distribution Width 13.4 % Platelet Count 324 TH/MM3 Mean Platelet Volume 8.6 FL Blood Urea Nitrogen 15 MG/DL Creatinine 0.64 MG/DL Random Glucose 67 MG/DL Calcium Level 8.4 MG/DL Sodium Level 138 MEQ/L Potassium Level 3.5 MEQ/L Chloride Level 102 MEQ/L Carbon Dioxide Level 20.8 MEQ/L Anion Gap 15 MEQ/L Estimat Glomerular Filtration Rate 91 ML/MIN Physical Exam General General Appearance: Well Developed, Well Nourished, No Acute Distress, Painful Eyes Eye Exam: Pupils Equal, Pupils Reactive Ears & Nose Ears & Nose Exam: Nasal Mucosa [place] Throat Throat Exam: Oral Mucosa [place] & Moist Neck Neck Exam: Neck Supple, Trachea Midline Pulmonary Resp Exam: Decreased Bases Cardiology CV Exam: Regular Gastrointestinal/Abdomen GI Exam: Soft, Non-Distended, Bowel Sounds Hypoactive GI Remarks NG tube to low intermittent suction with green gastric drainage Abdomen tender to palpation Incisions from recent surgery intact Genitourinary Exam: Clear Urine Remarks Reyna catheter Musculoskeletal MS Exam: Joints Intact Integumentary Skin Exam: Warm, Dry Extremeties Extremities Exam: No Edema, Pedal Pulses Palpable Neurologic Neuro Exam: Alert, Awake, Oriented, Speech Clear, Moving All Extremities, No Focal Deficits Psychiatric Psych Exam: Appropriate Responses VTE Prophylaxis VTE Prophylaxis Device: SCDs VTE Prophylaxis Meds: Lovenox PUD Prophylasis PUD Prophylaxis: Protonix Assessment/Plan Problem List: (1) Vomiting ICD Codes: R11.10 - Vomiting, unspecified Status: Acute (2) Right lower lobe pneumonia ICD Codes: J18.1 - Lobar pneumonia, unspecified organism Status: Acute (3) Urinary tract infection ICD Codes: N39.0 - Urinary tract infection, site not specified Status: Acute (4) recent lap suprapubic hernia repair Status: Acute (5) post op seroma Status: Acute (6) Postoperative pain ICD Codes: G89.18 - Other acute postprocedural pain Status: Acute (7) HTN (hypertension) ICD Codes: I10 - Essential (primary) hypertension Status: Chronic (8) CARLOS EDUARDO (acute kidney injury) ICD Codes: N17.9 - Acute kidney failure, unspecified Status: Acute Assessment/Plan Status post lap suprapubic hernia repair, presented with increasing abdominal pain, nausea CT abdomen findings pneumoperitoneum and mild ascites which may be related to recent hernia repair in the lower anterior abdomen wall, loculated fluid, proximally 5.5 cm, possibly postop seroma ad cystogram, unremarkable Appreciate Dr. Wilks's input, Relistor to be repeated today, Reyna to be dc and and NGT poss out after clamping Labs stable. NGT minimal output and she had a large BM yesterday. Continue with IV fluids Pain management overall improving slowly, labs stable Possible pneumonia, was recently hospitalized Continue with antibiotics IS Increase mobility UTI, group D enterococcus, sens pending Continue with antibiotics Renal function improving Continue with IV fluids Continue with blood pressure management Lovenox for DVT prophylaxis Protonix for GI prophylaxis Labs in the morning improving slowly Discussed with patient and family Discussed with Dr. Bonner/Dr. Wilks Discussed with RN This patient was seen by myself and Dr. Bonner, this note is written on his behalf Problem Qualifiers (1) Vomiting: Qualified Codes: R11.2 - Nausea with vomiting, unspecified (2) Right lower lobe pneumonia: Qualified Codes: J18.1 - Lobar pneumonia, unspecified organism (3) Urinary tract infection: Qualified Codes: N30.00 - Acute cystitis without hematuria (4) HTN (hypertension): Qualified Codes: I10 - Essential (primary) hypertension Toshia Jasso SHOP HAND Jul 19, 2017 13:43
--- NOTE | 2017-07-19 13:44 | HHI.PR ---
Subjective Subjective Notes She still feels pretty miserable. Abdominal pain is minimal. NG with low output. Objective Vitals/I&O Vital Signs Date Time Temp Pulse Resp B/P (MAP) Pulse Ox O2 Delivery O2 Flow Rate FiO2 07/19/17 12:00 98.0 95 16 159/74 (102) 97 07/19/17 09:11 Nasal Cannula 2.00 Labs Laboratory Tests Test 07/19/17 06:04 White Blood Count 9.2 Red Blood Count 3.61 Hemoglobin 11.7 Hematocrit 34.9 Mean Corpuscular Volume 96.7 Mean Corpuscular Hemoglobin 32.4 Mean Corpuscular Hemoglobin Concent 33.5 Red Cell Distribution Width 13.4 Platelet Count 324 Mean Platelet Volume 8.6 Blood Urea Nitrogen 15 Creatinine 0.64 Random Glucose 67 Calcium Level 8.4 Sodium Level 138 Potassium Level 3.5 Chloride Level 102 Carbon Dioxide Level 20.8 Anion Gap 15 Estimat Glomerular Filtration Rate 91 Date/Time Source Procedure Growth Status 07/17/17 02:15 Blood Peripheral Aerobic Blood Culture - Preliminary NO GROWTH IN 2 DAYS Resulted 07/17/17 02:15 Blood Peripheral Anaerobic Blood Culture - Preliminary NO GROWTH IN 2 DAYS Resulted 07/17/17 01:25 Urine Catheterized Urine Urine Culture - Preliminary Group D Enterococcus Resulted Narrative Exam NAD nonlabored breathing Abd: soft, nondistended, mild ttp, inc c/d/i ngt 100cc bilious output Morel clear uop A/P Assessment and Plan 72 yo F POD 8 s/p lap suprapubic hernia repair, readmitted for pain and vomiting - noted with ileus and UTI, ? PNA Labs stable. NGT minimal output and she had a large BM yesterday. D/c morel. Clamp ng and dc if low residuals and start clears. Suppository daily. Give another dose relistor. Antibiotics per medicine Efe,Jass JOHNSON Jul 19, 2017 13:44
[2017-07-19] MEDS ORDERED: METHYLNALTREXONE BROMIDE 12 MG/0.6 ML VIAL SQ ONE (13:45)
[2017-07-19] MEDS: BISACODYL 10 MG SUPP RECTAL SCH (13:45)
[2017-07-19 16:00] VITALS: BP 137/76; PULSE 84; RESP 17; TEMP 99; O2SAT 97
[2017-07-19] MEDS: AMPICILLIN-SULBACTAM INJ 3 GM in SODIUM CHLORIDE 0.9% INJ 100 ML IV SCH (19:11)
[2017-07-19 20:00] VITALS: BP 175/87; PULSE 90; RESP 17; TEMP 97.5; O2SAT 96
[2017-07-19] MEDS: DULoxetine HCl DR 30 MG CAP PO SCH (21:29)
[2017-07-19] MEDS ORDERED: oxyCODONE/ACETAMINOPHEN 5 MG/325 MG TAB PO PRN (21:30)
[2017-07-19] MEDS: METOCLOPRAMIDE HCL 10 MG/2 ML VIAL IV PRN (21:38)
[2017-07-19] MEDS: oxyCODONE/ACETAMINOPHEN 7.5 MG/325 MG TAB PO PRN (22:21)
[2017-07-20 00:39] VITALS: BP 164/79; PULSE 92; RESP 17; TEMP 98.6; O2SAT 97
[2017-07-20] MEDS: SODIUM CHLOR 0.9% 1000 ML INJ 1,000 ML IV SCH ×2 (00:51→15:23)
[2017-07-20] MEDS: AMPICILLIN-SULBACTAM INJ 3 GM in SODIUM CHLORIDE 0.9% INJ 100 ML IV SCH ×4 (00:51→18:14)
[2017-07-20] MEDS: MORPHINE SULFATE 4 MG/ML INJ IV PRN ×6 (00:58→18:18)
[2017-07-20] MEDS: ENOXAPARIN SODIUM 40 MG/0.4 ML SYRINGE SQ SCH (00:58)
[2017-07-20] MEDS: ACETAMINOPHEN 1000 MG/100 ML VIAL IV SCH ×3 (01:44→18:00)
[2017-07-20] MEDS: oxyCODONE/ACETAMINOPHEN 7.5 MG/325 MG TAB PO PRN ×3 (05:19→21:27)
[2017-07-20 07:35] LABS: HEMATOCRIT 37.5 % (35.0-46.0); MEAN CELL VOLUME 95.9 FL (80.0-100.0); MEAN CORPUSCULAR HEMOGLOBIN 31.9 PG (27.0-34.0); MEAN CORPUSCULAR HGB CONC 33.2 % (32.0-36.0); PLATELET COUNT 429 TH/MM3 (150-450); RED CELL DISTRIBUTION WIDTH 13.5 % (11.6-17.2); REVIEW FLAG FINAL; WHITE BLOOD COUNT 12.9 TH/MM3 (4.0-11.0)
[2017-07-20 08:00] VITALS: BP 157/71; PULSE 92; RESP 17; TEMP 97.4; O2SAT 96
[2017-07-20 08:03] LABS: POTASSIUM 3.5 MEQ/L (3.5-5.1)
[2017-07-20] MEDS: SODIUM CHLORIDE 0.9% FLUSH 10 ML FLUSH IV FLUSH SCH ×2 (09:00→21:00)
[2017-07-20] MEDS: TOPAMAX 100 MG PO SCH ×2 (09:00→21:00)
[2017-07-20] MEDS: HYDROCHLOROTHIAZIDE 12.5 MG CAP PO SCH (09:40)
[2017-07-20] MEDS: BISACODYL 10 MG SUPP RECTAL SCH (09:40)
[2017-07-20] MEDS: LOSARTAN 50 MG TAB PO SCH (09:40)
[2017-07-20] MEDS: ONDANSETRON HCL 4 MG/2 ML VIAL IV PRN (09:42)
[2017-07-20] MEDS: PANTOPRAZOLE SODIUM 40 MG VIAL IV PUSH SCH (11:10)
[2017-07-20 12:00] VITALS: BP 156/70; PULSE 88; RESP 17; TEMP 97.4; O2SAT 94
--- NOTE | 2017-07-20 13:26 | HHI.PR ---
Subjective Subjective Notes She had a bad night. She required morel to be replaced. She had spasm crampy pain in the lower abdomen. No recent BM. Had suppository placed this am. Objective Vitals/I&O Vital Signs Date Time Temp Pulse Resp B/P (MAP) Pulse Ox O2 Delivery O2 Flow Rate FiO2 07/20/17 12:12 17 07/20/17 12:00 97.4 88 156/70 (98) 94 07/19/17 09:45 Nasal Cannula 2.00 Labs Laboratory Tests Test 07/20/17 07:02 White Blood Count 12.9 Red Blood Count 3.90 Hemoglobin 12.5 Hematocrit 37.5 Mean Corpuscular Volume 95.9 Mean Corpuscular Hemoglobin 31.9 Mean Corpuscular Hemoglobin Concent 33.2 Red Cell Distribution Width 13.5 Platelet Count 429 Mean Platelet Volume 8.4 Blood Urea Nitrogen 14 Creatinine 0.75 Random Glucose 101 Calcium Level 8.1 Sodium Level 139 Potassium Level 3.5 Chloride Level 105 Carbon Dioxide Level 20.0 Anion Gap 14 Estimat Glomerular Filtration Rate 76 Date/Time Source Procedure Growth Status 07/17/17 02:15 Blood Peripheral Aerobic Blood Culture - Preliminary NO GROWTH IN 3 DAYS Resulted 07/17/17 02:15 Blood Peripheral Anaerobic Blood Culture - Preliminary NO GROWTH IN 3 DAYS Resulted 07/17/17 01:25 Urine Catheterized Urine Urine Culture - Final Enterococcus Faecalis Complete Radiology Last Impressions Chest X-Ray 07/17/17 0202 Signed Impressions: Service Date/Time: Monday, July 17, 2017 02:16 - CONCLUSION: 1. Basilar and perihilar airspace disease with small effusions. Differential diagnosis includes pneumonia, possibly with some underlying pulmonary edema as well. Ezio Zamarripa MD Cystogram X-Ray 07/17/17 0000 Signed Impressions: Service Date/Time: Monday, July 17, 2017 17:36 - CONCLUSION: Unremarkable cystogram. Prem Tiwari MD Abdomen/Pelvis CT 07/16/17 2304 Signed Impressions: Service Date/Time: Monday, July 17, 2017 01:23 - CONCLUSION: 1. Pneumoperitoneum and mild ascites which may be related to recent hernia repair in the lower anterior abdominal wall. 2. Loculated fluid in the anterior abdominal wall inferiorly measuring up to 5.5 cm in diameter. Differential diagnosis includes post op seroma but cannot exclude infection. 3. Dense consolidation right lung base most characteristic of pneumonia with small bilateral pleural effusions and basilar atelectasis. 4. Small bilateral renal cysts. Tiny nonobstructing calculus lower pole right kidney. Ezio Zamarripa MD Narrative Exam NAD nonlabored breathing Abd: soft, mild distention, mild ttp, inc c/d/i Morel clear uop A/P Assessment and Plan 72 yo F POD 9 s/p lap suprapubic hernia repair, readmitted for pain and vomiting - noted with ileus and UTI, ? PNA Start oxybutinin for probable bladder spasms. Would keep morel until tomorrow as she has required replacement multiple times. Fulls. Suppository daily. Antibiotics per medicine Efe,Jass JOHNSON Jul 20, 2017 13:26
[2017-07-20] MEDS ORDERED: PILL SPLITTER OTHER PRN (14:15)
[2017-07-20] MEDS: OXYBUTYNIN CHLORIDE 5 MG TAB PO SCH ×2 (15:18→21:25)
[2017-07-20 16:00] VITALS: BP 126/66; PULSE 91; RESP 17; TEMP 96.9; O2SAT 93
--- NOTE | 2017-07-20 16:24 | HHI.PR ---
Subjective History of Present Illness had a rough night , was unable to void after d/c of morel, morel was replaced c/o poor appetite , +ve nausea abd pain is ok NO BM +ve flatus NO fever or chills appears anxious offers no other c/o Vitals/Results Intake & Output 07/20/17 07/20/17 07/21/17 15:00 23:00 07:00 Intake Total 100 ml 1000 ml Balance 100 ml 1000 ml IV Total 100 ml 1000 ml Vital Signs Vital Signs Date Time Temp Pulse Resp B/P (MAP) Pulse Ox O2 Delivery O2 Flow Rate FiO2 07/20/17 16:00 96.9 91 17 126/66 (86) 93 07/20/17 14:05 17 07/20/17 12:12 17 07/20/17 12:00 97.4 88 17 156/70 (98) 94 07/20/17 10:00 Nasal Cannula 2.00 07/20/17 08:00 97.4 92 17 157/71 (99) 96 07/20/17 00:39 98.6 92 17 164/79 (107) 97 07/19/17 20:00 97.5 90 17 175/87 (116) 96 CBC/BMP: 07/20/17 0702 07/20/17 0702 Lab Results Laboratory Tests Test 07/20/17 07:02 White Blood Count 12.9 TH/MM3 Red Blood Count 3.90 MIL/MM3 Hemoglobin 12.5 GM/DL Hematocrit 37.5 % Mean Corpuscular Volume 95.9 FL Mean Corpuscular Hemoglobin 31.9 PG Mean Corpuscular Hemoglobin Concent 33.2 % Red Cell Distribution Width 13.5 % Platelet Count 429 TH/MM3 Mean Platelet Volume 8.4 FL Blood Urea Nitrogen 14 MG/DL Creatinine 0.75 MG/DL Random Glucose 101 MG/DL Calcium Level 8.1 MG/DL Sodium Level 139 MEQ/L Potassium Level 3.5 MEQ/L Chloride Level 105 MEQ/L Carbon Dioxide Level 20.0 MEQ/L Anion Gap 14 MEQ/L Estimat Glomerular Filtration Rate 76 ML/MIN Physical Exam General General Appearance: Anxious, Painful Appearance Remarks thinly built elderly WF Eyes Eye Exam: Pupils Equal, Sclera White Ears & Nose Ears & Nose Exam: Nasal Mucosa [place] Throat Throat Exam: Oral Mucosa [place] & Moist Neck Neck Exam: Neck Supple, Trachea Midline Pulmonary Resp Exam: Breath Sounds Equal, No Distress, Decreased Bases Cardiology CV Exam: Regular, Normal Sinus Rhythm Gastrointestinal/Abdomen GI Exam: Soft, Bowel Sounds Hypoactive GI Remarks +ve tenderness +ve mild tenderness . +ve healing lower abd surgical incision. Genitourinary Exam: Clear Urine Remarks morel catheter in place Integumentary Skin Exam: Warm, Dry Extremeties Extremities Exam: No Edema, Pedal Pulses Palpable Neurologic Neuro Exam: Alert, Awake, Oriented, Speech Clear, Moving All Extremities Psychiatric Psych Exam: Appropriate Responses VTE Prophylaxis VTE Prophylaxis Device: SCDs VTE Prophylaxis Meds: Lovenox PUD Prophylasis PUD Prophylaxis: Protonix Assessment/Plan Problem List: (1) Vomiting ICD Codes: R11.10 - Vomiting, unspecified Status: Acute (2) Right lower lobe pneumonia ICD Codes: J18.1 - Lobar pneumonia, unspecified organism Status: Acute (3) Urinary tract infection ICD Codes: N39.0 - Urinary tract infection, site not specified Status: Acute (4) recent lap suprapubic hernia repair Status: Acute (5) post op seroma Status: Acute (6) Postoperative pain ICD Codes: G89.18 - Other acute postprocedural pain Status: Acute (7) HTN (hypertension) ICD Codes: I10 - Essential (primary) hypertension Status: Chronic (8) CARLOS EDUARDO (acute kidney injury) ICD Codes: N17.9 - Acute kidney failure, unspecified Status: Acute Assessment/Plan S/p recent lap suprapubic hernia repair, UTI Enterococcus fecalis Atelectasis Vs Infiltrate abd pain /distension, Ileus vs partial bowel obstruction post surgical seroma Urinary retention ch pain anxiety NGT was d/c clear liquid diet was started/encourage po intake cont anti emetic cont Analgesic IVF IV Unasyn Gen Sx f/u cont morel catheter ditropan was added ystogram, unremarkable Appreciate Dr. Wilks's input, Relistor to be repeated today, Morel to be dc and and NGT poss out after clamping Labs stable. NGT minimal output and she had a large BM yesterday. Continue with IV fluids Pain management IS Increase mobility blood pressure management Lovenox for DVT prophylaxis Protonix for GI prophylaxis d/w PT will f/u Problem Qualifiers (1) Vomiting: Qualified Codes: R11.2 - Nausea with vomiting, unspecified (2) Right lower lobe pneumonia: Qualified Codes: J18.1 - Lobar pneumonia, unspecified organism (3) Urinary tract infection: Qualified Codes: N30.00 - Acute cystitis without hematuria (4) HTN (hypertension): Qualified Codes: I10 - Essential (primary) hypertension Maria Luisa Bonner MD Jul 20, 2017 16:24
[2017-07-20 20:40] VITALS: BP 156/72; PULSE 89; RESP 18; TEMP 98.3; O2SAT 97
[2017-07-20] MEDS: DULoxetine HCl DR 30 MG CAP PO SCH (21:25)
[2017-07-21] VITALS: BP 146/73; PULSE 90; RESP 17; TEMP 99.5; O2SAT 94
[2017-07-21] MEDS: ACETAMINOPHEN 1000 MG/100 ML VIAL IV SCH ×3 (01:11→17:52)
[2017-07-21] MEDS: MORPHINE SULFATE 4 MG/ML INJ IV PRN ×2 (01:11→08:32)
[2017-07-21] MEDS: ENOXAPARIN SODIUM 40 MG/0.4 ML SYRINGE SQ SCH (01:12)
[2017-07-21] MEDS: AMPICILLIN-SULBACTAM INJ 3 GM in SODIUM CHLORIDE 0.9% INJ 100 ML IV SCH ×4 (01:12→17:52)
[2017-07-21] MEDS: SODIUM CHLOR 0.9% 1000 ML INJ 1,000 ML IV SCH ×3 (01:15→21:15)
[2017-07-21] MEDS: OXYBUTYNIN CHLORIDE 5 MG TAB PO SCH ×3 (05:02→21:40)
[2017-07-21 08:00] VITALS: BP 168/83; PULSE 81; RESP 18; TEMP 98.3; O2SAT 95
[2017-07-21] MEDS: ONDANSETRON HCL 4 MG/2 ML VIAL IV PRN (08:28)
[2017-07-21] MEDS: HYDROCHLOROTHIAZIDE 12.5 MG CAP PO SCH (08:37)
[2017-07-21] MEDS: LOSARTAN 50 MG TAB PO SCH (08:37)
[2017-07-21] MEDS: BISACODYL 10 MG SUPP RECTAL SCH (08:37)
[2017-07-21] MEDS: TOPAMAX 100 MG PO SCH ×2 (08:38→21:00)
[2017-07-21] MEDS: SODIUM CHLORIDE 0.9% FLUSH 10 ML FLUSH IV FLUSH SCH ×2 (08:38→21:00)
[2017-07-21] MEDS: oxyCODONE/ACETAMINOPHEN 7.5 MG/325 MG TAB PO PRN ×2 (08:39→21:40)
[2017-07-21 09:49] VITALS: O2SAT 93
--- NOTE | 2017-07-21 10:26 | HHI.PR ---
Subjective Subjective Notes She feels impacted and constipated. This is her primary complaint. Objective Vitals/I&O Vital Signs Date Time Temp Pulse Resp B/P (MAP) Pulse Ox O2 Delivery O2 Flow Rate FiO2 07/21/17 08:00 98.3 81 18 168/83 (111) 95 07/20/17 10:00 Nasal Cannula 2.00 Labs Date/Time Source Procedure Growth Status 07/17/17 02:15 Blood Peripheral Aerobic Blood Culture - Preliminary NO GROWTH IN 3 DAYS Resulted 07/17/17 02:15 Blood Peripheral Anaerobic Blood Culture - Preliminary NO GROWTH IN 3 DAYS Resulted 07/17/17 01:25 Urine Catheterized Urine Urine Culture - Final Enterococcus Faecalis Complete Radiology Last Impressions Chest X-Ray 07/17/17 0202 Signed Impressions: Service Date/Time: Monday, July 17, 2017 02:16 - CONCLUSION: 1. Basilar and perihilar airspace disease with small effusions. Differential diagnosis includes pneumonia, possibly with some underlying pulmonary edema as well. Ezio Zamarripa MD Cystogram X-Ray 07/17/17 0000 Signed Impressions: Service Date/Time: Monday, July 17, 2017 17:36 - CONCLUSION: Unremarkable cystogram. Prem Tiwari MD Abdomen/Pelvis CT 07/16/17 2304 Signed Impressions: Service Date/Time: Monday, July 17, 2017 01:23 - CONCLUSION: 1. Pneumoperitoneum and mild ascites which may be related to recent hernia repair in the lower anterior abdominal wall. 2. Loculated fluid in the anterior abdominal wall inferiorly measuring up to 5.5 cm in diameter. Differential diagnosis includes post op seroma but cannot exclude infection. 3. Dense consolidation right lung base most characteristic of pneumonia with small bilateral pleural effusions and basilar atelectasis. 4. Small bilateral renal cysts. Tiny nonobstructing calculus lower pole right kidney. Ezio Zamarripa MD Narrative Exam NAD nonlabored breathing Abd: soft, mild distention, mild ttp, inc c/d/i Reyna clear uop A/P Assessment and Plan 72 yo F POD 10 s/p lap suprapubic hernia repair, readmitted for pain and vomiting- noted with ileus and UTI, ? PNA Cont oxybutinin for probable bladder spasms. Fulls. Give mineral oil enema, laxative, tap water enema if needed. Suppository daily. Antibiotics per medicine Efe,Jass JOHNSON Jul 21, 2017 10:26
--- NOTE | 2017-07-21 11:13 | HHI.PR ---
Subjective Subjective Remarks feeling poorly no bm yet, constipated, feels that it's hard stool abd. pain improved nausea no vomiting ngt out urinary retention, morel back in no fever Review of Systems Constitutional Constitutional Remarks 12 point review of systems completed, negative except as noted above Vitals/Results Vital Signs Vital Signs Date Time Temp Pulse Resp B/P (MAP) Pulse Ox O2 Delivery O2 Flow Rate FiO2 07/21/17 08:00 98.3 81 18 168/83 (111) 95 07/21/17 00:00 99.5 90 17 146/73 (97) 94 07/20/17 20:40 98.3 89 18 156/72 (100) 97 07/20/17 16:00 96.9 91 17 126/66 (86) 93 07/20/17 14:05 17 07/20/17 12:12 17 07/20/17 12:00 97.4 88 17 156/70 (98) 94 CBC/BMP: 07/20/17 0702 07/20/17 0702 Physical Exam General General Appearance: Well Developed, Well Nourished, No Acute Distress, Painful Eyes Eye Exam: Pupils Equal, Pupils Reactive Ears & Nose Ears & Nose Exam: Nasal Mucosa [place] Throat Throat Exam: Oral Mucosa [place] & Moist Neck Neck Exam: Neck Supple, Trachea Midline Pulmonary Resp Exam: Decreased Bases Cardiology CV Exam: Regular Gastrointestinal/Abdomen GI Exam: Soft, Non-Distended, Bowel Sounds Hypoactive GI Remarks Abdomen tender to palpation Incisions from recent surgery intact Genitourinary Exam: Clear Urine Remarks Morel catheter Musculoskeletal MS Exam: Joints Intact Integumentary Skin Exam: Warm, Dry Extremeties Extremities Exam: No Edema, Pedal Pulses Palpable Neurologic Neuro Exam: Alert, Awake, Oriented, Speech Clear, Moving All Extremities, No Focal Deficits Psychiatric Psych Exam: Appropriate Responses VTE Prophylaxis VTE Prophylaxis Device: SCDs VTE Prophylaxis Meds: Lovenox PUD Prophylasis PUD Prophylaxis: Protonix Assessment/Plan Problem List: (1) Vomiting ICD Codes: R11.10 - Vomiting, unspecified Status: Acute (2) Right lower lobe pneumonia ICD Codes: J18.1 - Lobar pneumonia, unspecified organism Status: Acute (3) Urinary tract infection ICD Codes: N39.0 - Urinary tract infection, site not specified Status: Acute (4) recent lap suprapubic hernia repair Status: Acute (5) post op seroma Status: Acute (6) Postoperative pain ICD Codes: G89.18 - Other acute postprocedural pain Status: Acute (7) HTN (hypertension) ICD Codes: I10 - Essential (primary) hypertension Status: Chronic (8) CARLOS EDUARDO (acute kidney injury) ICD Codes: N17.9 - Acute kidney failure, unspecified Status: Acute Assessment/Plan NGT was d/c Full liquid diet poor po intak cont anti emetic cont Analgesic IVF IV Unasyn Gen Sx f/u cont morel catheter ditropan was added cystogram, unremarkable Appreciate Dr. Wilks's input, Relistor to be repeated today, Morel to be dc and and NGT poss out after clamping Constipated will be receiving mineral oil enema, laxative, tap water enema if needed. Suppository daily. Pain management IS Increase mobility PT eval and tx blood pressure management Lovenox for DVT prophylaxis Protonix for GI prophylaxis Continue to monitor, not ready for dc D/W RN D/W Dr. Bonner D/W pt This patient was seen by myself and Dr. Bonner, this note is written on his behalf Problem Qualifiers (1) Vomiting: Qualified Codes: R11.2 - Nausea with vomiting, unspecified (2) Right lower lobe pneumonia: Qualified Codes: J18.1 - Lobar pneumonia, unspecified organism (3) Urinary tract infection: Qualified Codes: N30.00 - Acute cystitis without hematuria (4) HTN (hypertension): Qualified Codes: I10 - Essential (primary) hypertension Toshia Jasso [facility] Jul 21, 2017 11:13
[2017-07-21] MEDS: METOCLOPRAMIDE HCL 10 MG/2 ML VIAL IV PRN (11:55)
[2017-07-21] MEDS: DOCUSATE SODIUM 100 MG CAP PO SCH ×2 (11:59→17:52)
[2017-07-21 12:00] VITALS: BP 149/72; PULSE 85; RESP 18; TEMP 98.1; O2SAT 96
[2017-07-21] MEDS ORDERED: MINERAL OIL ENEMA 118 ML BTL RECTAL ONE (12:00)
[2017-07-21] MEDS: MAGNESIUM HYDROXIDE SUSP 30 ML CUP PO SCH (12:00)
[2017-07-21] MEDS: POLYETHYLENE GLYCOL 17 GM PKG PO SCH (12:00)
[2017-07-21] MEDS: PANTOPRAZOLE SODIUM 40 MG VIAL IV PUSH SCH (12:00)
[2017-07-21 16:00] VITALS: BP 167/76; PULSE 88; RESP 18; TEMP 98.6; O2SAT 96
[2017-07-21 20:00] VITALS: BP 166/86; PULSE 90; RESP 20; TEMP 100; O2SAT 93
[2017-07-21] MEDS: DULoxetine HCl DR 30 MG CAP PO SCH (21:40)
[2017-07-22] VITALS (7 sets, daily range): BP systolic 157–179; BP diastolic 71–83; PULSE 74–98; RESP 17–20; TEMP 97.8–99.9; O2SAT 94–99
[2017-07-22] MEDS: AMPICILLIN-SULBACTAM INJ 3 GM in SODIUM CHLORIDE 0.9% INJ 100 ML IV SCH ×3 (00:31→11:51)
[2017-07-22] MEDS: ENOXAPARIN SODIUM 40 MG/0.4 ML SYRINGE SQ SCH (02:19)
[2017-07-22] MEDS: ACETAMINOPHEN 1000 MG/100 ML VIAL IV SCH ×3 (02:19→16:55)
[2017-07-22] MEDS: OXYBUTYNIN CHLORIDE 5 MG TAB PO SCH ×3 (05:08→21:11)
[2017-07-22] MEDS: SODIUM CHLOR 0.9% 1000 ML INJ 1,000 ML IV SCH (05:08)
[2017-07-22] MEDS: SODIUM CHLORIDE 0.9% FLUSH 10 ML FLUSH IV FLUSH SCH ×2 (09:00→21:00)
[2017-07-22] MEDS: POLYETHYLENE GLYCOL 17 GM PKG PO SCH (09:00)
[2017-07-22] MEDS: MAGNESIUM HYDROXIDE SUSP 30 ML CUP PO SCH (09:00)
[2017-07-22] MEDS: TOPAMAX 100 MG PO SCH ×2 (09:00→21:00)
[2017-07-22] MEDS: DOCUSATE SODIUM 100 MG CAP PO SCH ×3 (09:00→16:55)
[2017-07-22] MEDS: BISACODYL 10 MG SUPP RECTAL SCH (09:00)
[2017-07-22] MEDS: HYDROCHLOROTHIAZIDE 12.5 MG CAP PO SCH (09:31)
[2017-07-22] MEDS: LOSARTAN 50 MG TAB PO SCH (09:31)
[2017-07-22] MEDS: MORPHINE SULFATE 4 MG/ML INJ IV PRN ×2 (09:43→16:56)
[2017-07-22] MEDS: ONDANSETRON HCL 4 MG/2 ML VIAL IV PRN ×2 (09:49→21:32)
[2017-07-22] MEDS: PANTOPRAZOLE SODIUM 40 MG VIAL IV PUSH SCH (11:51)
--- NOTE | 2017-07-22 11:55 | HHI.PR ---
Subjective History of Present Illness Feels better today Had multiple BM yesterday Tolerating liquid diet Diet is advanced to regular NO fever or chills Denies chest pain or shortness of breath Morel catheter was just DC'd offers no other c/o Vitals/Results Vital Signs Vital Signs Date Time Temp Pulse Resp B/P (MAP) Pulse Ox O2 Delivery O2 Flow Rate FiO2 07/22/17 08:00 98.7 89 20 179/81 (113) 96 07/22/17 04:00 98.4 94 20 175/74 (107) 94 07/22/17 00:00 99.4 98 18 169/83 (111) 95 07/21/17 20:00 100.0 90 20 166/86 (112) 93 07/21/17 16:00 98.6 88 18 167/76 (106) 96 07/21/17 12:00 98.1 85 18 149/72 (97) 96 CBC/BMP: 07/20/17 0702 07/20/17 0702 Physical Exam General General Appearance: No Acute Distress, Comfortable, Painful Appearance Remarks thinly built elderly [place] Eyes Eye Exam: Pupils Equal, Sclera White Ears & Nose Ears & Nose Exam: Nasal Mucosa [place] Throat Throat Exam: Oral Mucosa [place] & Moist Neck Neck Exam: Neck Supple, Trachea Midline Pulmonary Resp Exam: Breath Sounds Equal, No Distress, Decreased Bases Cardiology CV Exam: Regular, Normal Sinus Rhythm Gastrointestinal/Abdomen GI Exam: Soft, Bowel Sounds Hypoactive GI Remarks +ve mild tenderness . +ve healing lower abd surgical incision. Genitourinary Exam: Clear Urine Integumentary Skin Exam: Warm, Dry Extremeties Extremities Exam: No Edema, Pedal Pulses Palpable Neurologic Neuro Exam: Alert, Awake, Oriented, Speech Clear, Moving All Extremities Psychiatric Psych Exam: Appropriate Responses VTE Prophylaxis VTE Prophylaxis Device: SCDs VTE Prophylaxis Meds: Lovenox PUD Prophylasis PUD Prophylaxis: Protonix Assessment/Plan Problem List: (1) Vomiting ICD Codes: R11.10 - Vomiting, unspecified Status: Acute (2) Right lower lobe pneumonia ICD Codes: J18.1 - Lobar pneumonia, unspecified organism Status: Acute (3) Urinary tract infection ICD Codes: N39.0 - Urinary tract infection, site not specified Status: Acute (4) recent lap suprapubic hernia repair Status: Acute (5) post op seroma Status: Acute (6) Postoperative pain ICD Codes: G89.18 - Other acute postprocedural pain Status: Acute (7) HTN (hypertension) ICD Codes: I10 - Essential (primary) hypertension Status: Chronic (8) CARLOS EDUARDO (acute kidney injury) ICD Codes: N17.9 - Acute kidney failure, unspecified Status: Acute Assessment/Plan Regular diet Encourage oral intake cont anti emetic cont Analgesic / minimize narcotic usage IVF Discontinue IV Unasyn, start by mouth Augmentin Gen Sx f/u morel catheter was DC, monitor urine output/voiding ditropan General surgery following Constipated will be receiving mineral oil enema, laxative, tap water enema if needed. Suppository daily. Pain management/ continue analgesics IS Increase mobility PT eval and tx blood pressure management Lovenox for DVT prophylaxis Protonix for GI prophylaxis D/W pt Will follow Problem Qualifiers (1) Vomiting: Qualified Codes: R11.2 - Nausea with vomiting, unspecified (2) Right lower lobe pneumonia: Qualified Codes: J18.1 - Lobar pneumonia, unspecified organism (3) Urinary tract infection: Qualified Codes: N30.00 - Acute cystitis without hematuria (4) HTN (hypertension): Qualified Codes: I10 - Essential (primary) hypertension Maria Luisa Bonner MD Jul 22, 2017 11:55
--- NOTE | 2017-07-22 13:24 | HHI.PR ---
Subjective Subjective Notes Feels ok. Has had multiple large stools since yesterday. Weak but has ambulated. Objective Vitals/I&O Vital Signs Date Time Temp Pulse Resp B/P (MAP) Pulse Ox O2 Delivery O2 Flow Rate FiO2 07/22/17 08:00 98.7 89 20 179/81 (113) 96 07/20/17 10:00 Nasal Cannula 2.00 Labs Date/Time Source Procedure Growth Status 07/17/17 02:15 Blood Peripheral Aerobic Blood Culture - Final NO GROWTH IN 5 DAYS Complete 07/17/17 02:15 Blood Peripheral Anaerobic Blood Culture - Final NO GROWTH IN 5 DAYS Complete 07/17/17 01:25 Urine Catheterized Urine Urine Culture - Final Enterococcus Faecalis Complete Radiology Last Impressions Chest X-Ray 07/17/17 0202 Signed Impressions: Service Date/Time: Monday, July 17, 2017 02:16 - CONCLUSION: 1. Basilar and perihilar airspace disease with small effusions. Differential diagnosis includes pneumonia, possibly with some underlying pulmonary edema as well. Ezio Zamarripa MD Cystogram X-Ray 07/17/17 0000 Signed Impressions: Service Date/Time: Monday, July 17, 2017 17:36 - CONCLUSION: Unremarkable cystogram. Prem Tiwari MD Abdomen/Pelvis CT 07/16/17 2304 Signed Impressions: Service Date/Time: Monday, July 17, 2017 01:23 - CONCLUSION: 1. Pneumoperitoneum and mild ascites which may be related to recent hernia repair in the lower anterior abdominal wall. 2. Loculated fluid in the anterior abdominal wall inferiorly measuring up to 5.5 cm in diameter. Differential diagnosis includes post op seroma but cannot exclude infection. 3. Dense consolidation right lung base most characteristic of pneumonia with small bilateral pleural effusions and basilar atelectasis. 4. Small bilateral renal cysts. Tiny nonobstructing calculus lower pole right kidney. Ezio Zamarripa MD Narrative Exam NAD nonlabored breathing Abd: soft, mild distention, mild ttp, inc c/d/i Morel clear uop A/P Assessment and Plan 72 yo F POD 11 s/p lap suprapubic hernia repair, readmitted for pain and vomiting- noted with ileus and UTI, ? PNA Cont oxybutinin for probable bladder spasms. D/c morel. If no voiding by 9 PM will replace and I will ask urology to see her. KVO IV. Start regular diet. Continue bowel regimen. Antibiotics per medicine Check labs in am. EfeJass MD Jul 22, 2017 13:24
[2017-07-22] MEDS ORDERED: SODIUM CHLOR 0.9% 1000 ML INJ 1,000 ML IV SCH (13:45)
[2017-07-22] MEDS: ENALAPRILAT 2.5 MG/2 ML VIAL IV PUSH PRN ×2 (16:56→22:08)
[2017-07-22] MEDS: DULoxetine HCl DR 30 MG CAP PO SCH (21:10)
[2017-07-22] MEDS: AMOXICILLIN/CLAVULANATE K 500 MG TAB PO SCH (21:29)
[2017-07-23] VITALS: BP 168/81; PULSE 75; RESP 17; TEMP 98.3; O2SAT 98
[2017-07-23] MEDS: ACETAMINOPHEN 1000 MG/100 ML VIAL IV SCH ×5 (02:00→17:14)
[2017-07-23] MEDS: ENOXAPARIN SODIUM 40 MG/0.4 ML SYRINGE SQ SCH (02:37)
[2017-07-23 04:00] VITALS: BP 143/65; PULSE 86
[2017-07-23 05:20] LABS: AUTOMATED NEUTROPHIL # 7.6 TH/MM3 (1.8-7.7); BASOPHIL # 0.1 TH/MM3 (0-0.2); BASOPHIL % 0.6 % (0.0-2.0); EOSINOPHIL # 0.1 TH/MM3 (0-0.4); EOSINOPHIL % 1.2 % (0.0-4.0); HEMATOCRIT 33.2 % (35.0-46.0); LYMPHOCYTE # 1.2 TH/MM3 (1.0-4.8); MEAN CORPUSCULAR HEMOGLOBIN 31.7 PG (27.0-34.0); MEAN CORPUSCULAR HGB CONC 33.4 % (32.0-36.0); MONO % 8.4 % (0.0-8.0); NEUT % 77.8 % (16.0-70.0); PLATELET COUNT 520 TH/MM3 (150-450); RED CELL DISTRIBUTION WIDTH 13.8 % (11.6-17.2); WHITE BLOOD COUNT 9.7 TH/MM3 (4.0-11.0)
[2017-07-23 05:31] LABS: HEMO FLAGS AUTO DIFF
[2017-07-23 05:51] LABS: BICARBONATE 22.7 MEQ/L (21.0-32.0); POTASSIUM 3.1 MEQ/L (3.5-5.1)
[2017-07-23] MEDS: AMOXICILLIN/CLAVULANATE K 500 MG TAB PO SCH ×3 (06:00→20:39)
[2017-07-23 06:05] LABS: BANDS 1 % (0-6); BASOPHILS 1 % (0-2); MYELOCYTES 2 % (0-0); NEUTROPHIL # MANUAL DIFF 8.2 TH/MM3 (1.8-7.7); PLATELET ESTIMATE SMEAR HIGH (NORMAL); PLATELET MORPHOLOGY NORMAL (NORMAL); POLYS (SEG NEUTROPHILS) 82 % (16-70); WBC DIFF SAMPLE 100
[2017-07-23 06:06] LABS: SCAN/DIFF FINAL DIFF MANUAL
[2017-07-23] MEDS: OXYBUTYNIN CHLORIDE 5 MG TAB PO SCH ×3 (06:39→20:39)
[2017-07-23 08:00] VITALS: BP 177/74; PULSE 89; RESP 19; TEMP 98.8; O2SAT 96
[2017-07-23] MEDS: DOCUSATE SODIUM 100 MG CAP PO SCH ×3 (08:33→17:13)
[2017-07-23] MEDS: POLYETHYLENE GLYCOL 17 GM PKG PO SCH (08:34)
[2017-07-23] MEDS: MAGNESIUM HYDROXIDE SUSP 30 ML CUP PO SCH (08:34)
[2017-07-23] MEDS: BISACODYL 10 MG SUPP RECTAL SCH ×2 (08:34→17:13)
[2017-07-23] MEDS: HYDROCHLOROTHIAZIDE 12.5 MG CAP PO SCH (08:35)
[2017-07-23] MEDS: TOPAMAX 100 MG PO SCH ×2 (08:36→20:40)
[2017-07-23] MEDS: SODIUM CHLORIDE 0.9% FLUSH 10 ML FLUSH IV FLUSH SCH ×2 (08:41→20:40)
[2017-07-23] MEDS: LOSARTAN 50 MG TAB PO SCH (08:41)
[2017-07-23] MEDS: MORPHINE SULFATE 4 MG/ML INJ IV PRN (08:50)
[2017-07-23] MEDS: ONDANSETRON HCL 4 MG/2 ML VIAL IV PRN ×2 (08:50→14:41)
[2017-07-23 12:00] VITALS: BP 164/81; PULSE 77; RESP 20; TEMP 98; O2SAT 95
[2017-07-23] MEDS: PANTOPRAZOLE SODIUM 40 MG VIAL IV PUSH SCH (14:07)
[2017-07-23 16:00] VITALS: BP 174/78; PULSE 92; RESP 19; TEMP 98.7; O2SAT 95
[2017-07-23] MEDS: oxyCODONE/ACETAMINOPHEN 7.5 MG/325 MG TAB PO PRN ×2 (17:13→23:00)
[2017-07-23] MEDS: METOCLOPRAMIDE HCL 10 MG/2 ML VIAL IV PRN ×2 (17:13→23:03)
--- NOTE | 2017-07-23 17:40 | HHI.PR ---
Subjective History of Present Illness Feels better today Had multiple BM yesterday Tolerating liquid diet Diet is advanced to regular NO fever or chills Denies chest pain or shortness of breath Morel catheter was just DC'd offers no other c/o Vitals/Results Intake & Output 07/23/17 07/23/17 07/24/17 15:00 23:00 07:00 Intake Total 1120 ml Balance 1120 ml Intake Oral 120 ml IV Total 1000 ml Vital Signs Vital Signs Date Time Temp Pulse Resp B/P (MAP) Pulse Ox O2 Delivery O2 Flow Rate FiO2 07/23/17 12:00 98.0 77 20 164/81 (108) 95 07/23/17 08:00 98.8 89 19 177/74 (108) 96 07/23/17 04:00 86 143/65 (91) 07/23/17 00:00 98.3 75 17 168/81 (110) 98 07/22/17 23:00 91 166/71 (102) 07/22/17 20:30 Room Air 07/22/17 20:00 99.9 82 17 157/72 (100) 98 CBC/BMP: 07/23/17 0450 07/23/17 0450 Lab Results Laboratory Tests Test 07/23/17 04:50 White Blood Count 9.7 TH/MM3 Red Blood Count 3.50 MIL/MM3 Hemoglobin 11.1 GM/DL Hematocrit 33.2 % Mean Corpuscular Volume 95.0 FL Mean Corpuscular Hemoglobin 31.7 PG Mean Corpuscular Hemoglobin Concent 33.4 % Red Cell Distribution Width 13.8 % Platelet Count 520 TH/MM3 Mean Platelet Volume 8.0 FL Neutrophils (%) (Auto) 77.8 % Lymphocytes (%) (Auto) 12.0 % Monocytes (%) (Auto) 8.4 % Eosinophils (%) (Auto) 1.2 % Basophils (%) (Auto) 0.6 % Neutrophils # (Auto) 7.6 TH/MM3 Lymphocytes # (Auto) 1.2 TH/MM3 Monocytes # (Auto) 0.8 TH/MM3 Eosinophils # (Auto) 0.1 TH/MM3 Basophils # (Auto) 0.1 TH/MM3 CBC Comment AUTO DIFF Differential Total Cells Counted 100 Neutrophils % (Manual) 82 % Band Neutrophils % 1 % Lymphocytes % 6 % Monocytes % 8 % Basophils % 1 % Neutrophils # (Manual) 8.2 TH/MM3 Myelocytes 2 % Differential Comment FINAL DIFF MANUAL Platelet Estimate HIGH Platelet Morphology Comment NORMAL Red Cell Morphology Comment NORMAL Blood Urea Nitrogen 7 MG/DL Creatinine 0.52 MG/DL Random Glucose 103 MG/DL Calcium Level 8.1 MG/DL Sodium Level 140 MEQ/L Potassium Level 3.1 MEQ/L Chloride Level 106 MEQ/L Carbon Dioxide Level 22.7 MEQ/L Anion Gap 11 MEQ/L Estimat Glomerular Filtration Rate 116 ML/MIN Physical Exam General General Appearance: No Acute Distress, Comfortable, Painful Appearance Remarks thinly built elderly W[place] Eyes Eye Exam: Pupils Equal, Sclera White Ears & Nose Ears & Nose Exam: Nasal Mucosa [place] Throat Throat Exam: Oral Mucosa [place] & Moist Neck Neck Exam: Neck Supple, Trachea Midline Pulmonary Resp Exam: Breath Sounds Equal, No Distress, Decreased Bases Cardiology CV Exam: Regular, Normal Sinus Rhythm Gastrointestinal/Abdomen GI Exam: Soft, Bowel Sounds Hypoactive GI Remarks +ve mild tenderness . +ve healing lower abd surgical incision. Genitourinary Exam: Clear Urine Integumentary Skin Exam: Warm, Dry Extremeties Extremities Exam: No Edema, Pedal Pulses Palpable Neurologic Neuro Exam: Alert, Awake, Oriented, Speech Clear, Moving All Extremities Psychiatric Psych Exam: Appropriate Responses VTE Prophylaxis VTE Prophylaxis Device: SCDs VTE Prophylaxis Meds: Lovenox PUD Prophylasis PUD Prophylaxis: Protonix Assessment/Plan Problem List: (1) Vomiting ICD Codes: R11.10 - Vomiting, unspecified Status: Acute (2) Right lower lobe pneumonia ICD Codes: J18.1 - Lobar pneumonia, unspecified organism Status: Acute (3) Urinary tract infection ICD Codes: N39.0 - Urinary tract infection, site not specified Status: Acute (4) recent lap suprapubic hernia repair Status: Acute (5) post op seroma Status: Acute (6) Postoperative pain ICD Codes: G89.18 - Other acute postprocedural pain Status: Acute (7) HTN (hypertension) ICD Codes: I10 - Essential (primary) hypertension Status: Chronic (8) CARLOS EDUARDO (acute kidney injury) ICD Codes: N17.9 - Acute kidney failure, unspecified Status: Acute Assessment/Plan Regular diet Encourage oral intake cont anti emetic cont Analgesic / minimize narcotic usage IVF Discontinue IV Unasyn, start by mouth Augmentin Gen Sx f/u morel catheter was DC, monitor urine output/voiding ditropan General surgery following Constipated will be receiving mineral oil enema, laxative, tap water enema if needed. Suppository daily. Pain management/ continue analgesics IS Increase mobility PT eval and tx blood pressure management Lovenox for DVT prophylaxis Protonix for GI prophylaxis D/W pt Will follow Problem Qualifiers (1) Vomiting: Qualified Codes: R11.2 - Nausea with vomiting, unspecified (2) Right lower lobe pneumonia: Qualified Codes: J18.1 - Lobar pneumonia, unspecified organism (3) Urinary tract infection: Qualified Codes: N30.00 - Acute cystitis without hematuria (4) HTN (hypertension): Qualified Codes: I10 - Essential (primary) hypertension Maria Luisa Bonner MD Jul 23, 2017 17:40
[2017-07-23] MEDS ORDERED: POTASSIUM CHLOR 10 MEQ PREMIX 100 ML IV ONE (17:45)
[2017-07-23] MEDS ORDERED: POTASSIUM CHLORIDE 8 MEQ CONTROLLED RELEASE TAB PO ONE (17:45)
--- NOTE | 2017-07-23 18:59 | HHI.PR ---
Subjective Subjective Notes pt states pain better pos flatus cont with nausea Objective Vitals/I&O Vital Signs Date Time Temp Pulse Resp B/P (MAP) Pulse Ox O2 Delivery O2 Flow Rate FiO2 07/23/17 16:00 98.7 92 19 174/78 (110) 95 07/22/17 20:30 Room Air 07/20/17 10:00 2.00 Labs Laboratory Tests Test 07/23/17 04:50 White Blood Count 9.7 Red Blood Count 3.50 Hemoglobin 11.1 Hematocrit 33.2 Mean Corpuscular Volume 95.0 Mean Corpuscular Hemoglobin 31.7 Mean Corpuscular Hemoglobin Concent 33.4 Red Cell Distribution Width 13.8 Platelet Count 520 Mean Platelet Volume 8.0 Neutrophils (%) (Auto) 77.8 Lymphocytes (%) (Auto) 12.0 Monocytes (%) (Auto) 8.4 Eosinophils (%) (Auto) 1.2 Basophils (%) (Auto) 0.6 Neutrophils # (Auto) 7.6 Lymphocytes # (Auto) 1.2 Monocytes # (Auto) 0.8 Eosinophils # (Auto) 0.1 Basophils # (Auto) 0.1 CBC Comment AUTO DIFF Differential Total Cells Counted 100 Neutrophils % (Manual) 82 Band Neutrophils % 1 Lymphocytes % 6 Monocytes % 8 Basophils % 1 Neutrophils # (Manual) 8.2 Myelocytes 2 Differential Comment FINAL DIFF MANUAL Platelet Estimate HIGH Platelet Morphology Comment NORMAL Red Cell Morphology Comment NORMAL Blood Urea Nitrogen 7 Creatinine 0.52 Random Glucose 103 Calcium Level 8.1 Sodium Level 140 Potassium Level 3.1 Chloride Level 106 Carbon Dioxide Level 22.7 Anion Gap 11 Estimat Glomerular Filtration Rate 116 Date/Time Source Procedure Growth Status 07/17/17 02:15 Blood Peripheral Aerobic Blood Culture - Final NO GROWTH IN 5 DAYS Complete 07/17/17 02:15 Blood Peripheral Anaerobic Blood Culture - Final NO GROWTH IN 5 DAYS Complete 07/17/17 01:25 Urine Catheterized Urine Urine Culture - Final Enterococcus Faecalis Complete Radiology Last Impressions Chest X-Ray 07/17/17 0202 Signed Impressions: Service Date/Time: Monday, July 17, 2017 02:16 - CONCLUSION: 1. Basilar and perihilar airspace disease with small effusions. Differential diagnosis includes pneumonia, possibly with some underlying pulmonary edema as well. Ezio Zamarripa MD Cystogram X-Ray 07/17/17 0000 Signed Impressions: Service Date/Time: Monday, July 17, 2017 17:36 - CONCLUSION: Unremarkable cystogram. Prem Tiwari MD Abdomen/Pelvis CT 07/16/17 2304 Signed Impressions: Service Date/Time: Monday, July 17, 2017 01:23 - CONCLUSION: 1. Pneumoperitoneum and mild ascites which may be related to recent hernia repair in the lower anterior abdominal wall. 2. Loculated fluid in the anterior abdominal wall inferiorly measuring up to 5.5 cm in diameter. Differential diagnosis includes post op seroma but cannot exclude infection. 3. Dense consolidation right lung base most characteristic of pneumonia with small bilateral pleural effusions and basilar atelectasis. 4. Small bilateral renal cysts. Tiny nonobstructing calculus lower pole right kidney. Ezio Zamarripa MD Abdomen: Non-distended, Non-tender Extremities: Perfused Wound Wound : Wound Location: Abdomen Appearance: Clean & Dry A/P Assessment and Plan pt s/p lap hernia with bladder spasms and post opileus ileus improving start scopolamine for nausea cont diet Wagner Garcia MD Jul 23, 2017 18:59
[2017-07-23] MEDS ORDERED: SCOPOLAMINE 1.5 MG PATCH T-DERMAL SCH ×2 (19:00→20:00)
[2017-07-23 20:00] VITALS: BP 129/63; PULSE 61; RESP 17; TEMP 96.9; O2SAT 96
[2017-07-23] MEDS: DULoxetine HCl DR 30 MG CAP PO SCH (20:39)
[2017-07-24] VITALS: BP 120/61; PULSE 68; RESP 17; TEMP 97; O2SAT 97
[2017-07-24] MEDS: ACETAMINOPHEN 1000 MG/100 ML VIAL IV SCH ×2 (02:53→10:47)
[2017-07-24] MEDS: ENOXAPARIN SODIUM 40 MG/0.4 ML SYRINGE SQ SCH (02:53)
[2017-07-24 05:28] LABS: BICARBONATE 24.3 MEQ/L (21.0-32.0); POTASSIUM 3.3 MEQ/L (3.5-5.1)
[2017-07-24] MEDS: OXYBUTYNIN CHLORIDE 5 MG TAB PO SCH ×2 (05:29→14:38)
[2017-07-24] MEDS: METOCLOPRAMIDE HCL 10 MG/2 ML VIAL IV PRN (05:30)
[2017-07-24] MEDS: AMOXICILLIN/CLAVULANATE K 500 MG TAB PO SCH ×2 (05:33→14:38)
[2017-07-24 07:59] VITALS: O2SAT 95
[2017-07-24 08:00] VITALS: BP 155/72; PULSE 79; RESP 18; TEMP 98.5; O2SAT 96
[2017-07-24] MEDS: BISACODYL 10 MG SUPP RECTAL SCH (09:00)
[2017-07-24] MEDS: POLYETHYLENE GLYCOL 17 GM PKG PO SCH (09:00)
[2017-07-24] MEDS: MAGNESIUM HYDROXIDE SUSP 30 ML CUP PO SCH (09:00)
[2017-07-24] MEDS: SODIUM CHLORIDE 0.9% FLUSH 10 ML FLUSH IV FLUSH SCH (09:00)
[2017-07-24] MEDS: DOCUSATE SODIUM 100 MG CAP PO SCH (09:00)
[2017-07-24] MEDS: HYDROCHLOROTHIAZIDE 12.5 MG CAP PO SCH (09:33)
[2017-07-24] MEDS: TOPAMAX 100 MG PO SCH (09:34)
[2017-07-24] MEDS: oxyCODONE/ACETAMINOPHEN 7.5 MG/325 MG TAB PO PRN ×2 (09:34→14:38)
[2017-07-24] MEDS: LOSARTAN 50 MG TAB PO SCH (09:34)
[2017-07-24] MEDS ORDERED: POTASSIUM CHLORIDE 10 MEQ CONTROLLED RELEASE TAB PO ONE (10:00)
[2017-07-24] MEDS ORDERED: OXYB5TAB10 PO (11:26)
[2017-07-24] MEDS ORDERED: OXYC1TAB35 PO (11:26)
[2017-07-24] MEDS ORDERED: SCOP1PAT2 T-DERMAL (11:26)
--- NOTE | 2017-07-24 11:29 | HHI.PR ---
Subjective Subjective Notes No bladder spasms. Minimal nausea. She is eating. Had multiple bowel movts last night. Objective Vitals/I&O Vital Signs Date Time Temp Pulse Resp B/P (MAP) Pulse Ox O2 Delivery O2 Flow Rate FiO2 07/24/17 08:00 98.5 79 18 155/72 (99) 96 07/24/17 04:00 Room Air 07/20/17 10:00 2.00 Labs Laboratory Tests Test 07/24/17 04:34 Blood Urea Nitrogen 7 Creatinine 0.62 Random Glucose 105 Calcium Level 8.3 Sodium Level 140 Potassium Level 3.3 Chloride Level 106 Carbon Dioxide Level 24.3 Anion Gap 10 Estimat Glomerular Filtration Rate 95 Date/Time Source Procedure Growth Status 07/17/17 02:15 Blood Peripheral Aerobic Blood Culture - Final NO GROWTH IN 5 DAYS Complete 07/17/17 02:15 Blood Peripheral Anaerobic Blood Culture - Final NO GROWTH IN 5 DAYS Complete 07/17/17 01:25 Urine Catheterized Urine Urine Culture - Final Enterococcus Faecalis Complete Radiology Last Impressions Chest X-Ray 07/17/17 0202 Signed Impressions: Service Date/Time: Monday, July 17, 2017 02:16 - CONCLUSION: 1. Basilar and perihilar airspace disease with small effusions. Differential diagnosis includes pneumonia, possibly with some underlying pulmonary edema as well. Ezio Zamarripa MD Cystogram X-Ray 07/17/17 0000 Signed Impressions: Service Date/Time: Monday, July 17, 2017 17:36 - CONCLUSION: Unremarkable cystogram. Prem Tiwari MD Abdomen/Pelvis CT 07/16/17 2304 Signed Impressions: Service Date/Time: Monday, July 17, 2017 01:23 - CONCLUSION: 1. Pneumoperitoneum and mild ascites which may be related to recent hernia repair in the lower anterior abdominal wall. 2. Loculated fluid in the anterior abdominal wall inferiorly measuring up to 5.5 cm in diameter. Differential diagnosis includes post op seroma but cannot exclude infection. 3. Dense consolidation right lung base most characteristic of pneumonia with small bilateral pleural effusions and basilar atelectasis. 4. Small bilateral renal cysts. Tiny nonobstructing calculus lower pole right kidney. Ezio Zamarripa MD Narrative Exam NAD nonlabored breathing Abd: soft, mild distention, mild ttp, inc c/d/i A/P Assessment and Plan 72 yo F POD 13 s/p lap suprapubic hernia repair, readmitted for pain and vomiting- noted with ileus and UTI, ? PNA She is improving, but still weak. Constipation improved with bowel regimen. No further bladder spasms and voiding well. She is ok for discharge today or tomorrow from my standpoint. We discussed her home bowel regimen. I put rx for percocet, scopolamine patch, oxybutinin. Efe,Jass JOHNSON Jul 24, 2017 11:29
[2017-07-24 12:00] VITALS: BP 141/69; PULSE 79; RESP 18; TEMP 98.1; O2SAT 95
--- NOTE | 2017-07-24 12:37 | HHI.PR ---
Subjective Subjective Remarks Sitting up in chair States abdomen sore but improving slowly Able to keep down by mouth liquids and soft food Encouraged to continue to drink and hydrate (Edwina Waterman) Review of Systems Constitutional Constitutional: Weakness (mild but improving) Constitutional Remarks 10 point ROS done positives noted (Edwina Waterman) GI/Abdomen GI/Abdominal Exam: Abdominal Pain (Edwina Waterman) Vitals/Results Vital Signs Vital Signs Date Time Temp Pulse Resp B/P (MAP) Pulse Ox O2 Delivery O2 Flow Rate FiO2 07/24/17 08:00 98.5 79 18 155/72 (99) 96 07/24/17 07:59 95 07/24/17 04:00 Room Air 07/24/17 00:00 97.0 68 17 120/61 (80) 97 07/24/17 00:00 Room Air 07/23/17 20:00 Room Air 07/23/17 20:00 96.9 61 17 129/63 (85) 96 07/23/17 16:00 98.7 92 19 174/78 (110) 95 (Edwina Waterman) CBC/BMP: 07/23/17 0450 07/24/17 0434 Lab Results Laboratory Tests Test 07/24/17 04:34 Blood Urea Nitrogen 7 MG/DL Creatinine 0.62 MG/DL Random Glucose 105 MG/DL Calcium Level 8.3 MG/DL Sodium Level 140 MEQ/L Potassium Level 3.3 MEQ/L Chloride Level 106 MEQ/L Carbon Dioxide Level 24.3 MEQ/L Anion Gap 10 MEQ/L Estimat Glomerular Filtration Rate 95 ML/MIN Imaging Remarks Last Impressions Chest X-Ray 07/17/17 0202 Signed Impressions: Service Date/Time: Monday, July 17, 2017 02:16 - CONCLUSION: 1. Basilar and perihilar airspace disease with small effusions. Differential diagnosis includes pneumonia, possibly with some underlying pulmonary edema as well. Ezio Zamarripa MD Cystogram X-Ray 07/17/17 0000 Signed Impressions: Service Date/Time: Monday, July 17, 2017 17:36 - CONCLUSION: Unremarkable cystogram. Prem Tiwari MD Abdomen/Pelvis CT 07/16/17 2304 Signed Impressions: Service Date/Time: Monday, July 17, 2017 01:23 - CONCLUSION: 1. Pneumoperitoneum and mild ascites which may be related to recent hernia repair in the lower anterior abdominal wall. 2. Loculated fluid in the anterior abdominal wall inferiorly measuring up to 5.5 cm in diameter. Differential diagnosis includes post op seroma but cannot exclude infection. 3. Dense consolidation right lung base most characteristic of pneumonia with small bilateral pleural effusions and basilar atelectasis. 4. Small bilateral renal cysts. Tiny nonobstructing calculus lower pole right kidney. Ezio Zamarripa MD ([place],Edwina M. ROCKBOARD LATHER) Physical Exam General General Appearance: No Acute Distress, Comfortable, Pale (mild), Painful ([place],Edwina M. ROCKBOARD LATHER) Eyes Eye Exam: Pupils Equal, Sclera White ([place],Edwina M. ROCKBOARD LATHER) Ears & Nose Ears & Nose Exam: Nasal Mucosa Roca ([place],Edwina M. ROCKBOARD LATHER) Throat Throat Exam: Oral Mucosa [place] & Moist ([place],Edwina M. ROCKBOARD LATHER) Neck Neck Exam: Neck Supple, Trachea Midline ([place],Edwina M. ROCKBOARD LATHER) Pulmonary Resp Exam: Breath Sounds Equal, No Distress, Decreased Bases ([place],Edwina M. ROCKBOARD LATHER) Cardiology CV Exam: Regular, Normal Sinus Rhythm ([place],Edwina M. ROCKBOARD LATHER) Gastrointestinal/Abdomen GI Exam: Soft, Bowel Sounds Hypoactive ([place],Edwina M. ROCKBOARD LATHER) Genitourinary Exam: Clear Urine ([place],Edwina M. ROCKBOARD LATHER) Integumentary Skin Exam: Warm, Dry ([place],Edwina M. ROCKBOARD LATHER) Extremeties Extremities Exam: No Edema, Pedal Pulses Palpable ([place],Edwina M. ROCKBOARD LATHER) Neurologic Neuro Exam: Alert, Awake, Oriented, Speech Clear, Moving All Extremities ([place],Edwina M. ROCKBOARD LATHER) Psychiatric Psych Exam: Appropriate Responses ([place],Edwina M. ROCKBOARD LATHER) VTE Prophylaxis VTE Prophylaxis Device: SCDs VTE Prophylaxis Meds: Lovenox ([place],Edwina M. ROCKBOARD LATHER) PUD Prophylasis PUD Prophylaxis: Protonix ([place],Edwina M. ROCKBOARD LATHER) Assessment/Plan Problem List: (1) Vomiting ICD Codes: R11.10 - Vomiting, unspecified Status: Acute (2) Right lower lobe pneumonia ICD Codes: J18.1 - Lobar pneumonia, unspecified organism Status: Acute (3) Urinary tract infection ICD Codes: N39.0 - Urinary tract infection, site not specified Status: Acute (4) recent lap suprapubic hernia repair Status: Acute (5) post op seroma Status: Acute (6) Postoperative pain ICD Codes: G89.18 - Other acute postprocedural pain Status: Acute (7) HTN (hypertension) ICD Codes: I10 - Essential (primary) hypertension Status: Chronic (8) CARLOS EDUARDO (acute kidney injury) ICD Codes: N17.9 - Acute kidney failure, unspecified Status: Acute Assessment/Plan UTI, currently having no symptoms of dysuria Encourage by mouth fluids Tolerate by mouth fluids and Regular diet Continue to encourage fluids all during the day Now on Augmentin Gen Sx f/u will be as an outpatient, appreciate input, okay to DC from their standpoint Hypokalemia, extra dose of potassium 40 mEq given 1 today Constipated Resolved, but will need to continue to monitor bowel regimen even when she goes home, discussed in detail per GS according to the note Pain management/, follow per general surgery Encourage mobility, and by mouth fluids, turn cough deep breaths Lovenox for DVT prophylaxis Protonix for GI prophylaxis D/W pt Discussed with nurse Discussed with Dr. bonner, seen on his behalf Discharge planning probable today (Edwina Waterman) Assessment/Plan pt is seen & examined d/w PT clinically better, tolerating diet, moving bowel/pain is in control ambulating independently clinically stable cleared by Gen Sx ok to d/c home see [facility] f/u pcp f/u gen Sx see orders d/w edwina (Maria Luisa Bonner MD) Problem Qualifiers (1) Vomiting: Qualified Codes: R11.2 - Nausea with vomiting, unspecified (2) Right lower lobe pneumonia: Qualified Codes: J18.1 - Lobar pneumonia, unspecified organism (3) Urinary tract infection: Qualified Codes: N30.00 - Acute cystitis without hematuria (4) HTN (hypertension): Qualified Codes: I10 - Essential (primary) hypertension Edwina Waterman Jul 24, 2017 12:37 Maria Luisa Bonner MD Jul 24, 2017 14:06
[2017-07-24] MEDS ORDERED: AUGM500T7 PO (14:09)
[2017-07-24 16:00] VITALS: BP 148/75; PULSE 81; RESP 18; TEMP 98; O2SAT 95
--- NOTE | 2017-07-24 17:47 | HHI.DS ---
Discharge Summary Admission Date Jul 18, 2017 at 15:54 Discharge Date: Jul 24, 2017 Admitting Diagnosis pneumonia, UTI, post op pain, vomiting Procedures Cystogram Brief History This was a pleasant, uncomfortable 72-year-old white female that had a suprapubic hernia repair [address] Wilks. She was doing fine in the hospital, was passing gas, had a bowel movement before she left and went home yesterday on 07/15. She had felt like she was doing well but had acute onset of nausea and vomiting. She stated that she was passing gas in the hospital but had not passed any gas since she got here. She had no bowel movement since DC and she had not voided. She was still having episodes of nausea and spitting up some white, clear mucus. She had continued to have extreme abdominal pain. On examination the patient has lower abdominal firmness which could be her bladder. Reyna catheter was placed in and intensive I&O to be measured. The patient otherwise denied any other symptoms of chest pain, no shortness of breath, no headache. She initially was hypertensive but blood pressure is down now to 160/77. CBC/BMP: 07/23/17 0450 07/24/17 0434 Significant Findings Laboratory Tests Test 07/23/17 04:50 07/24/17 04:34 Red Blood Count 3.50 MIL/MM3 (4.00-5.30) Hemoglobin 11.1 GM/DL (11.6-15.3) Hematocrit 33.2 % (35.0-46.0) Platelet Count 520 TH/MM3 (150-450) Neutrophils (%) (Auto) 77.8 % (16.0-70.0) Monocytes (%) (Auto) 8.4 % (0.0-8.0) Neutrophils % (Manual) 82 % (16-70) Lymphocytes % 6 % (9-44) Neutrophils # (Manual) 8.2 TH/MM3 (1.8-7.7) Myelocytes 2 % (0-0) Platelet Estimate HIGH (NORMAL) Calcium Level 8.1 MG/DL (8.5-10.1) 8.3 MG/DL (8.5-10.1) Potassium Level 3.1 MEQ/L (3.5-5.1) 3.3 MEQ/L (3.5-5.1) Imaging Last Impressions Chest X-Ray 8/21/17 0202 Signed Impressions: Service Date/Time: Monday, July 17, 2017 02:16 - CONCLUSION: 1. Basilar and perihilar airspace disease with small effusions. Differential diagnosis includes pneumonia, possibly with some underlying pulmonary edema as well. Ezio Zamarripa MD Cystogram X-Ray 07/17/17 0000 Signed Impressions: Service Date/Time: Monday, July 17, 2017 17:36 - CONCLUSION: Unremarkable cystogram. Prem Tiwari MD Abdomen/Pelvis CT 07/16/17 2304 Signed Impressions: Service Date/Time: Monday, July 17, 2017 01:23 - CONCLUSION: 1. Pneumoperitoneum and mild ascites which may be related to recent hernia repair in the lower anterior abdominal wall. 2. Loculated fluid in the anterior abdominal wall inferiorly measuring up to 5.5 cm in diameter. Differential diagnosis includes post op seroma but cannot exclude infection. 3. Dense consolidation right lung base most characteristic of pneumonia with small bilateral pleural effusions and basilar atelectasis. 4. Small bilateral renal cysts. Tiny nonobstructing calculus lower pole right kidney. Ezio Zamarripa MD PE at Discharge General Appearance: Well Developed, Well Nourished, No Acute Distress, Painful Eyes Eye Exam: Pupils Equal, Pupils Reactive Ears & Nose Ears & Nose Exam: Nasal Mucosa [place] Throat Throat Exam: Oral Mucosa [place] & Moist Neck Neck Exam: Neck Supple, Trachea Midline Pulmonary Resp Exam: Decreased Bases Cardiology CV Exam: Regular Gastrointestinal/Abdomen GI Exam: Soft, Non-Distended, Bowel Sounds Hypoactive GI Remarks Abdomen tender to palpation Incisions from recent surgery intact Genitourinary Exam: Clear Urine Remarks Reyna catheter Musculoskeletal MS Exam: Joints Intact Integumentary Skin Exam: Warm, Dry Extremeties Extremities Exam: No Edema, Pedal Pulses Palpable Neurologic Neuro Exam: Alert, Awake, Oriented, Speech Clear, Moving All Extremities, No Focal Deficits Psychiatric Psych Exam: Appropriate Responses VTE Prophylaxis VTE Prophylaxis Device: SCDs VTE Prophylaxis Meds: Lovenox PUD Prophylasis PUD Prophylaxis: Protonix Hospital Course These are the diagnoses that were used to treat this patient during her hospital stay and develop a plan of care (1) Vomiting (2) Right lower lobe pneumonia (3) Urinary tract infection (4) recent lap suprapubic hernia repair Acute (5) post op seroma Acute (6) Postoperative pain Acute (7) HTN (hypertension) Status: Chronic (8) CARLOS EDUARDO (acute kidney injury) Treatment regimens initially were vital signs every 4 hours and as needed. The was based on the findings Patient had a Reyna catheter placed and for intensive I&O, as initially started on antibiotics IV Unasyn, Dipropan was added, cystogram was done and was unremarkable NG tube was placed inpatient, after being seen per general surgery. Was maintained nothing by mouth, until bowel sounds were active and patient was able to tolerate clear liquids She initially had poor by mouth intake, pain, nausea and vomiting, and was managed with pain meds General sales representative consultant was Dr. Wilks's, appreciate his input input, Relistor to be repeated Bowel regimen was monitored throughout hospital stay , patient had issues with constipation will be receiving mineral oil enema, laxative, tap water enema if needed. Suppository daily. Pain management IS Increase mobility PT whit pedro been treated for her deconditioning and strengthening needs Once patient was ambulatory, NG tube and Reyna DC'd, and able to tolerate solid food for 24-48 hours she was deemed medically stable for discharge. To follow up with general surgery as listed. Seen per Dr. wagner, on day of discharge Lovenox for DVT prophylaxis Protonix for GI prophylaxis Pt Condition on Discharge: Stable Discharge Disposition: Discharge Home Discharge Instructions DIET: Follow Instructions for: Heart Healthy Diet Fluid Restrictions: none Activities you can perform: Weight Bearing as Shlomo Follow up Referrals: PCP Follow-up - 1 Week Surgical - 10 Days with Jass Wilks MD New Medications: Amoxicillin-Clavulanate (Augmentin) 500-125 mg Tab 500 MG PO Q8HR for uti for 5 Days, #15 TAB Oxybutynin (Ditropan) 5 Mg Tab 2.5 MG PO Q8HR for bladder spasms for 10 Days, TAB Oxycodone-Acetaminophen (Oxycodone-Acetaminophen) 7.5-325 mg Tab 1 TAB PO Q6H PRN for PAIN 1-10, #30 TAB Scopolamine (Transderm-Scop) 1 Mg/3 Days Dis 1 PATCH T-DERMAL Q3D for NAUSEA for 9 Days, PATCH Continued Medications: Alprazolam (Xanax) 0.25 Mg Tab 0.25 MG PO DAILY PRN for ANXIETY, TAB 0 Refills Cyclobenzaprine (Flexeril) 10 Mg Tab 10 MG PO TID PRN for PAIN SCALE 1 TO 10, #90 TAB 0 Refills Docusate Sodium (Docusate Sodium) 100 Mg Cap 100 MG PO BID PRN for COUGH, #60 CAP [address] (Cymbalta DR) 30 Mg Capdr 30 MG PO HS, #30 CAP 0 Refills Frovatriptan (Frova) 2.5 Mg Tab 1 TAB PO DIRECTED PRN for HEADACHE Losartan-Hydrochlorothiazide (Losartan-Hydrochlorothiazide) 100-12.5 Mg Tab 1 TAB PO DAILY for Blood Pressure Management, #30 TAB 0 Refills Ondansetron (Zofran) 4 Mg Tab 4 MG PO Q6HR PRN for NAUSEA OR VOMITING, TAB 0 Refills Ondansetron Odt (Zofran Odt) 4 Mg Tab 4 MG SL Q6HR PRN for Nausea/Vomiting, #20 TAB 0 Refills Pantoprazole (Protonix) 40 Mg Tab 40 MG PO DAILY for Reflux, #30 TAB 0 Refills Topiramate (Topamax) 100 Mg Tab 100 MG PO BID for Control Seizures, #60 TAB 0 Refills cannot take generic Discontinued Medications: Hydrocodone-Acetaminophen (Hydrocodone-Acetaminophen) 10-325 mg Tab 1 TAB PO TID PRN for PAIN, TAB 0 Refills Ranitidine (Ranitidine) 300 Mg Tab 300 MG PO HS for Heartburn Management, #30 TAB 0 Refills Edwina Waterman Jul 24, 2017 17:47
[2017-07-26] MEDS ORDERED: REMOVE OLD SCOPOLAMINE PATCH T-DERMAL SCH (20:00)
== END 2017-07-24 16:45 | disposition home or self-care (01) | DRG 919 ==
LOC: NEPC 22:44 → INTOOBSV 07-17 02:06 → NEDA 07-17 02:06 → NEDH 07-17 06:30 → NEPGCP 07-17 11:00 → N07A 07-17 22:25 → OBSVTOIN 07-18 15:54
PROVIDERS: ADMIT Specialist; ATTEND Specialist
DX: L76.34 Postprocedural seroma of skin and subcutaneous tissue following other procedure (principal); J18.9 Pneumonia, unspecified organism; N17.9 Acute kidney failure, unspecified; N39.0 Urinary tract infection, site not specified; G89.18 Other acute postprocedural pain; J45.909 Unspecified asthma, uncomplicated; I10 Essential (primary) hypertension; K21.9 Gastro-esophageal reflux disease without esophagitis; M79.7 Fibromyalgia; G43.909 Migraine, unspecified, not intractable, without status migrainosus; Y83.8 Other surgical procedures as the cause of abnormal reaction of the patient, or of later complication, without mention of misadventure at the time of the procedure; F41.9 Anxiety disorder, unspecified; B95.2 Enterococcus as the cause of diseases classified elsewhere; N32.89 Other specified disorders of bladder; K59.00 Constipation, unspecified; K43.2 Incisional hernia without obstruction or gangrene; R33.9 Retention of urine, unspecified; R60.9 Edema, unspecified
CPT/HCPCS: 51600; 71010; 74177; 74430; 76937; 80048; 81001; 83605; 85007; 85025; 85027; 87040; 87077; 87086; 87186; 94150; 96361; 96365; 96372; 96375; 96376; C9113; G0378; J0131; J0295; J0456; J0696; J1650; J1885; J2212; J2270; J2405; J2765; J3370; J3480; J7030; J7050; P9612; Q9958; Q9967